=== PATIENT | male | born 1965 | race Caucasian/White ===

== ENCOUNTER 2022-05-02 19:44 | Inpatient (IN) | payer MEDICAID ==
[2022-05-02 20:42] LABS: BASOPHILS % (AUTO) 0.2 %; EOSINOPHILS % (AUTO) 0.3 %; HCT - HEMATOCRIT 39.9 % (42.0-52.0); HGB - HEMOGLOBIN 13.5 g/dL (14.0-18.0); LYMPHOCYTES % (AUTO) 9.1 %; MEAN CORPUSCULAR HEMOGLOBIN 27.4 pg (27.0-31.0); MEAN CORPUSCULAR HGB CONC 33.8 g/dL (32.0-36.0); MEAN CORPUSCULAR VOLUME 80.9 fL (80.0-94.0); MEAN PLATELET VOLUME 10.8 fL (7.4-11.4); MONOCYTES % (AUTO) 4.6 %; NEUTROPHILS % (AUTO) 81.2 %; PLT - PLATELET COUNT 548 10^3/uL (130-450); RED BLOOD COUNT 4.93 10^6/uL (4.70-6.10); WHITE BLOOD COUNT 26.1 x10^3/uL (4.8-10.8)
[2022-05-02 20:47] LABS: INR 1.5 (0.8-1.2); PT - PROTHROMBIN TIME 16.3 secs (9.9-12.6)
[2022-05-02 20:49] LABS: SLIDE REVIEW? Indicated
[2022-05-02 20:50] LABS: ABNORMAL LYMPHS % (MANUAL) 0 %
[2022-05-02 20:54] LABS: PARTIAL THROMBOPLASTIN TIME 23.7 secs (24.9-33.3)
[2022-05-02 20:55] LABS: ALBUMIN 2.4 g/dL (3.2-5.5); ALBUMIN/GLOBULIN RATIO 0.4 (1.0-2.2); BILIRUBIN,TOTAL 3.6 mg/dL (0.2-1.0); CALCIUM 8.1 mg/dL (8.5-10.3); CREATININE 1.5 mg/dL (0.6-1.2); POTASSIUM 4.4 mmol/L (3.5-5.0); TOTAL PROTEIN 8.1 g/dL (6.7-8.2)
[2022-05-02 21:29] LABS: BAND NEUTROPHILS % (MANUAL) 14 %; BASOPHILS # (MANUAL) 0.3 10^3/uL (0-0.1); BASOPHILS % (MANUAL) 1 %; LYMPHOCYTES # (MANUAL) 1.8 10^3/uL (1.5-3.5); LYMPHOCYTES % (MANUAL) 7 %; METAMYELOCYTES % (MANUAL) 2 %; NEUTROPHILS # (MANUAL) 22.2 10^3/uL (1.5-6.6); PROMYELOCYTES % (MANUAL) 1 %
[2022-05-02 21:31] LABS: DIFFERENTIAL COMMENT MANUAL DIFFERENTIAL; PLATELET ESTIMATE, MANUAL INCREASED (>450,000) (NORMAL); PLATELET MORPHOLOGY NORMAL APPEARANCE (NORMAL); RBC MORPHOLOGY (MULTIPLE) 1+ POLYCHROMASIA (NORMAL); WBC MORPHOLOGY (MULTIPLE) 3+ TOXIC GRANULATION (NORMAL)
[2022-05-02] MEDS ORDERED: VANCOMYCIN INJ 2 GM in SODIUM CHLORIDE 0.9% 500 ML IV STA (21:46)
[2022-05-02] MEDS ORDERED: SODIUM CHLORIDE 0.9% 1,000 ML IV STA (21:49)
[2022-05-02] MEDS ORDERED: PIPERACILLIN/TAZOBACTAM 3.375 GM in SODIUM CHLORIDE 0.9% MINIBAG 100 ML IV STA (21:49)
--- NOTE | 2022-05-02 21:50 | ED Physician Documentation ---
History of Present Illness - Stated complaint Stated Complaint: SWOLLEN/ROTTING LEGS - Chief complaint Chief Complaint: Ext Problem - History obtained from History obtained from: Patient, Friend - Additonal information Additional information: Patient is a 57-year-old male with no known medical conditions presenting for evaluation of bilateral lower extremity wounds with maggot infestation. Patient is a poor historian but states that he has had wounds and maggots for quite some time but they have recently become worse. He has not been to any facilities for medical care due to lack of insurance. He is homeless but has lived on [facility] for a long time.Patient denies tobacco use but admits to alcohol and meth use.He denies chest pain, difficulty breathing, coughing, abdominal pain, vomi ting or diarrhea. Review of Systems Constitutional: denies: Fever Nose: denies: Congestion Cardiac: denies: Chest pain / pressure Respiratory: denies: Dyspnea GI: denies: Abdominal Pain, Vomiting, Diarrhea : denies: Dysuria Skin: reports: Rash Musculoskeletal: reports: Extremity pain, Extremity swelling Neurologic: denies: Headache PD PAST MEDICAL HISTORY - Allergies Allergies/Adverse Reactions: Allergies Allergy/AdvReac Type Severity Reaction Status Date / Time No Known Drug Allergies Allergy Verified 05/02/22 19:56 PD ED PE NORMAL - General General: Alert and oriented X 3, Well developed/nourished, Other (Disheveled, unkempt) - HEENT HEENT: Atraumatic, Moist mucous membranes - Neck Neck: Supple, no meningeal sign - Cardiac Cardiac: RRR, No murmur, Strong equal pulses - Respiratory Respiratory: No respiratory distress, Clear bilaterally - Abdomen Abdomen: Normal bowel sounds, Soft, Non tender, Non distended (Protuberant abdomen) - Derm Derm: Other (Sunburn to face and right upper shoulder region, right lower extremity erythema) - Extremities Extremities: Other (Significant edema to bilateral lower extremities with chronic skin changes; Erythema to right, Extensive amount of maggots To right lower extremity some as well to left; Pedal pulses intact) Results - Vitals Vitals: Vital Signs - 24 hr 05/02/22 05/02/22 05/02/22 19:56 19:59 21:57 Temperature 37.3 C 37.3 C Heart Rate 116 H 112 H 111 H Respiratory 16 18 18 Rate Blood Pressure 143/92 H 164/86 H 155/86 H O2 Saturation 98 92 91 L 05/02/22 05/02/22 05/02/22 22:00 22:30 23:00 Temperature Heart Rate 111 H 108 H 105 H Respiratory 18 23 27 H Rate Blood Pressure 164/86 H 137/77 H 153/75 H O2 Saturation 92 93 94 05/02/22 05/03/22 23:30 00:00 Temperature Heart Rate 103 H 103 H Respiratory 25 H 26 H Rate Blood Pressure 131/65 H 107/63 O2 Saturation 91 L 19 L Oxygen O2 Source Room air - Labs Labs: Laboratory Tests 05/02/22 05/02/22 05/02/22 20:32 20:32 20:32 WBC 26.1 H RBC 4.93 Hgb 13.5 L Hct 39.9 L MCV 80.9 MCH 27.4 MCHC 33.8 RDW 15.0 Plt Count 548 H MPV 10.8 Neut # (Auto) Not Reportable Lymph # (Auto) Not Reportable [place] # (Auto) Not Reportable Eos # (Auto) Not Reportable Baso # (Auto) Not Reportable Absolute Nucleated RBC Not Reportable Total Counted 100 Band Neuts % (Manual) 14 H Abnorm Lymph % (Manual) 0 Metamyelocytes % 2 H Promyelocytes % 1 H Nucleated RBC % Not Reportable Neutrophils # (Manual) 22.2 H Lymphocytes # (Manual) 1.8 Monocytes # (Manual) 1.0 Eosinophils # (Manual) 0.0 Basophils # (Manual) 0.3 H Differential Comment MANUAL DIFFERENTIAL Manual Slide Review Indicated WBC Morphology 3+ TOXIC GRANULATION Platelet Estimate INCREASED (>450,000) Platelet Morphology NORMAL APPEARANCE RBC Morph Micro Appear 1+ POLYCHROMASIA PT 16.3 H INR 1.5 H APTT 23.7 L Sodium 128 L Potassium 4.4 Chloride 88 L Carbon Dioxide 21 Anion Gap 19.0 H BUN 49 H Creatinine 1.5 H Estimated GFR (MDRD) 48 L Glucose 157 H Lactic Acid Calcium 8.1 L Total Bilirubin 3.6 H AST 87 H ALT 53 Alkaline Phosphatase 161 H Total Protein 8.1 Albumin 2.4 L Globulin 5.7 H Albumin/Globulin Ratio 0.4 L Lipase 24 Urine Color Urine Clarity Urine pH Ur Specific [place] Urine Protein Urine Glucose (UA) Urine Ketones Urine Occult Blood Urine Nitrite Urine Bilirubin Urine Urobilinogen Ur Leukocyte Esterase Urine RBC Urine WBC Ur Squamous Epith Cells Urine Bacteria Urine Casts Ur Microscopic Review Urine Culture Comments SARS-CoV-2 (PCR) 05/02/22 05/02/22 05/02/22 20:32 21:50 23:51 WBC RBC Hgb Hct MCV MCH MCHC RDW Plt Count MPV Neut # (Auto) Lymph # (Auto) [place] # (Auto) Eos # (Auto) Baso # (Auto) Absolute Nucleated RBC Total Counted Band Neuts % (Manual) Abnorm Lymph % (Manual) Metamyelocytes % Promyelocytes % Nucleated RBC % Neutrophils # (Manual) Lymphocytes # (Manual) Monocytes # (Manual) Eosinophils # (Manual) Basophils # (Manual) Differential Comment Manual Slide Review WBC Morphology Platelet Estimate Platelet Morphology RBC Morph Micro Appear PT INR APTT Sodium Potassium Chloride Carbon Dioxide Anion Gap BUN Creatinine Estimated GFR (MDRD) Glucose Lactic Acid 3.0 H* 2.1 Calcium Total Bilirubin AST ALT Alkaline Phosphatase Total Protein Albumin Globulin Albumin/Globulin Ratio Lipase Urine Color Urine Clarity Urine pH Ur Specific [place] Urine Protein Urine Glucose (UA) Urine Ketones Urine Occult Blood Urine Nitrite Urine Bilirubin Urine Urobilinogen Ur Leukocyte Esterase Urine RBC Urine WBC Ur Squamous Epith Cells Urine Bacteria Urine Casts Ur Microscopic Review Urine Culture Comments SARS-CoV-2 (PCR) NOT DETECTED 05/02/22 23:58 WBC RBC Hgb Hct MCV MCH MCHC RDW Plt Count MPV Neut # (Auto) Lymph # (Auto) [place] # (Auto) Eos # (Auto) Baso # (Auto) Absolute Nucleated RBC Total Counted Band Neuts % (Manual) Abnorm Lymph % (Manual) Metamyelocytes % Promyelocytes % Nucleated RBC % Neutrophils # (Manual) Lymphocytes # (Manual) Monocytes # (Manual) Eosinophils # (Manual) Basophils # (Manual) Differential Comment Manual Slide Review WBC Morphology Platelet Estimate Platelet Morphology RBC Morph Micro Appear PT INR APTT Sodium Potassium Chloride Carbon Dioxide Anion Gap BUN Creatinine Estimated GFR (MDRD) Glucose Lactic Acid Calcium Total Bilirubin AST ALT Alkaline Phosphatase Total Protein Albumin Globulin Albumin/Globulin Ratio Lipase Urine Color DARK YELLOW Urine Clarity SL. CLOUDY Urine pH 5.5 Ur Specific [place] 1.025 Urine Protein 30 H Urine Glucose (UA) NEGATIVE Urine Ketones NEGATIVE Urine Occult Blood TRACE-LYSE Urine Nitrite NEGATIVE Urine Bilirubin MODERATE H Urine Urobilinogen >=8.0 H Ur Leukocyte Esterase NEGATIVE Urine RBC 0-5 Urine WBC 0-3 Ur Squamous Epith Cells RARE Squamous Urine Bacteria Rare Urine Casts 0-2 Hyaline Casts Ur Microscopic Review INDICATED Urine Culture Comments NOT INDICATED SARS-CoV-2 (PCR) PD MEDICAL DECISION MAKING - ED course ED course: 1206 - Dr. To has Evaluated the patient and Agrees to admit to inpatient. Hospitalist will consult surgery in the morning as patient will likely need wound debridement but does not require this emergently tonight. Departure - Departure Disposition: 66 [facility] DC/Xfer Clinical Impression: Cellulitis of right lower extremity, ROBYN (acute kidney injury), Sepsis, Maggot infestation, Hyponatremia Condition: Serious
[2022-05-02] MEDS ORDERED: VANCOMYCIN 1 GM VIAL ONE (22:08)
[2022-05-03 00:08] LABS: LACTIC ACID, VENOUS 2.1 mmol/L (0.5-2.2)
[2022-05-03 00:12] LABS: GLUCOSE, URINE (UA) NEGATIVE (NEGATIVE); KETONES,URINE (UA) NEGATIVE (NEGATIVE); LEUKOCYTE ESTERASE, URINE NEGATIVE (NEGATIVE); NITRITE,URINE NEGATIVE (NEGATIVE); OCCULT BLOOD,URINE TRACE-LYSE (NEGATIVE); PH,URINE 5.5 PH (5.0-7.5); PROTEIN,URINE 30 mg/dL (NEGATIVE); UROBILINOGEN,URINE >=8.0 E.U./dL (NORMAL)
[2022-05-03] MEDS ORDERED: ONDANSETRON 4 MG/2 ML VIAL IVP PRN (00:13)
[2022-05-03] MEDS ORDERED: SODIUM CHLORIDE FLUSH 0.9% 10 ML SYRINGE IVP PRN (00:13)
[2022-05-03 00:17] LABS: BILIRUBIN,URINE MODERATE (NEGATIVE); CLARITY,URINE SL. CLOUDY (CLEAR); ICTOTEST,URINE POSITIVE
[2022-05-03 00:22] LABS: BACTERIA,URINE Rare /HPF (None Seen); CASTS, URINE 0-2 Hyaline Casts /LPF; RBC,URINE 0-5 /HPF (0-5); SQUAMOUS EPITHELIAL CELL,UR RARE Squamous (<= Few); WBC,URINE 0-3 /HPF (0-3)
--- NOTE | 2022-05-03 00:40 | HISTORY & PHYSICAL EXAMINATION ---
Chief Complaint - Chief Complaint Chief Complaint: chronic lower extremity wounds with maggots History of Present Illness - Admitted From Admitted From:: [facility] ED - History Obtained From Records Reviewed: yes History obtained from: ED provider, patient and friend Exam Limitations: poor historian - History of Present Illness HPI Comment/Other: Patient is a 57-year-old obese male who is homeless and very disheveled. He resides on [facility] in [facility]. He was brought in by a friend because he noted that there was an increased amount of maggots coming out of his lower extremity wounds. This is notably on the right lower extremity. The patient has chronic wounds for years. It appears he had maggots in this wounds for a very long time. However lately there seems to be a significantly increa sed amount of maggots. The lower extremity is currently weeping serosanguineous fluid and there is innumerable amount of maggots coming out of the wounds. The leg is significantly edematous and erythematous. There are left lower extremity has chronic venous stasis changes. He has significant facial sunburn and the skin on his forehead is peeling Patient is not a very good historian. He denies any medical problems for which he takes medications. He smokes cigarettes does not consume alcohol and uses methamphetamine. The last time was about 2 weeks ago. In the ED work-up included CBC which showed a white blood cell count of 26.1 with 14 bands. Lactic acid 3.0. Creatinine 1.5. He was presented for admission for further treatment. He denies chest pain, dyspnea, abdominal pain, nausea, vomiting, fever or chills. History - Past Medical History MRSA Hx?: No Other Past Medical History: Patient denies any medical history. He does not take any medications. He has not seen a physician in a long time. - Family & Social History Family History Comment/Other: None germane to his presentation. Social History Notes: The patient is homeless. He lives on [facility]. He reports living on [facility] for the past 20 years. He is family/relatives are in the [facility] area. He reports smoking too much cigarettes. He also uses methamphetamine. Last use was about 2 weeks ago. He denies alcohol use. - POLST Patient has POLST: No POLST Status: Full Code Meds/Allgy - Allergies Allergies/Adverse Reactions: Allergies Allergy/AdvReac Type Severity Reaction Status Date / Time No Known Drug Allergies Allergy Verified 05/02/22 19:56 Review of Systems - Other Findings Other Findings: A 12 point review of system was done and found to be negative except for as mentioned in the HPI. Prior Level of Functionality: He is independent of activities of daily living Exam - Vital Signs Vital Signs: Vital Signs x48h Temp Pulse Resp BP Pulse Ox 05/03/22 00:00 103 H 26 H 107/63 19 L 05/02/22 23:30 103 H 25 H 131/65 H 91 L 05/02/22 23:00 105 H 27 H 153/75 H 94 05/02/22 22:30 108 H 23 137/77 H 93 05/02/22 22:00 111 H 18 164/86 H 92 05/02/22 21:57 111 H 18 155/86 H 91 L 05/02/22 19:59 37.3 C 112 H 18 164/86 H 92 05/02/22 19:56 37.3 C 116 H 16 143/92 H 98 - Physical Exam General Appearance: positive: Alert, Mild distress, Other (Very dishevelled) Eyes Bilateral: positive: PERRL, EOMI ENT: positive: No signs of dehydration Neck: positive: No JVD, Trachea midline Respiratory: positive: Chest non-tender, No respiratory distress, Breath sounds nml. negative: Wheezes, Rales, Rhonchi Cardiovascular: positive: Tachycardia Abdomen: positive: Non-tender, Nml bowel sounds, Other (protuberant abdomen.). negative: Guarding, Rebound Back: negative: Nml inspection Skin: positive: Other (facial sunburn with skin peeling on forehead) Extremities: positive: Other (Extensive chronic right lower extremity wounds with innumerable maggots. Erythema on the right lower extremity. Weeping serosanguinous fluid. Chronic venostasis changes on left leg) Neurologic/Psychiatric: positive: Oriented x3 Sepsis Event Note (H) - Evaluation Current Stage of Sepsis: Sepsis Possible source of Sepsis: positive: Skin/soft tissue - Sepsis Criteria Sepsis Criteria: Recorded Heart Rate greater than 90 bpm, WBC count greater than 10% bands, WBC count greater than 12,000 or less than 4000, Metabolic: lactate > 2 mmol/L Conclusion/Plan - Problem List (1) Sepsis Conclusion/Plan: Secondary to right lower extremity cellulitis. White blood cell count 26.1 with 14% bands. Lactic acid 3.0. Trend lactic acid Chronic right lower extremity wounds with innumerable maggots. Blood cultures drawn. Patient started on IV hydration with normal saline at 125 mL/h. Antibiotics vancomycin and Zosyn initiated. Will consult general surgery Dr. Martinez for debridement (2) Cellulitis of right lower extremity Conclusion/Plan: White blood cell count 26.1 with 14% bands. Lactic acid 3.0. Trend lactic acid Chronic right lower extremity wounds with innumerable maggots. Blood cultures drawn. Patient started on IV hydration with normal saline at 125 mL/h. Antibiotics vancomycin and Zosyn initiated. Will consult general surgery Dr. Martinez for debridement (3) Chronic wound of extremity Conclusion/Plan: White blood cell count 26.1 with 14% bands. Lactic acid 3.0. Trend lactic acid Chronic right lower extremity wounds with innumerable maggots. Blood cultures drawn. Patient started on IV hydration with normal saline at 125 mL/h. Antibiotics vancomycin and Zosyn initiated. Will consult general surgery Dr. Martinez for debridement Patient will need to follow-up with wound care in the outpatient setting. (4) ROBYN (acute kidney injury) Conclusion/Plan: Creatinine 1.5 with estimated GFR of 48. Patient was given a 1 L bolus of normal saline in the emergency room. IV hydration with normal saline at 125 mL/h initiated (5) Methamphetamine abuse Conclusion/Plan: Patient reports methamphetamine use as recently as 2 weeks ago. - Lab Results Fish Bones: 05/02/22 20:32 05/02/22 20:32 Core Measures - Anticipated LOS I expect patient to be DC'd or transferred within 96 hours.: Yes - DVT/VTE - Prophylaxis VTE/DVT Device ordered at admit?: No VTE/DVT Prophylaxis med ordered at admit?: Yes
[2022-05-03] MEDS ORDERED: SODIUM CHLORIDE 0.9% 1,000 ML IV SCH (01:00)
[2022-05-03] MEDS: SODIUM CHLORIDE FLUSH 0.9% 10 ML SYRINGE IVP SCH ×3 (03:09→17:45)
[2022-05-03 03:27] LABS: LACTIC ACID, VENOUS 2.2 mmol/L (0.5-2.2)
[2022-05-03] MEDS: PIPERACILLIN/TAZOBACTAM 3.375 GM in SODIUM CHLORIDE 0.9% MINIBAG 100 ML IV SCH ×3 (03:44→17:41)
[2022-05-03 05:59] LABS: BASOPHILS % (AUTO) 0.1 %; EOSINOPHILS % (AUTO) 0.3 %; HCT - HEMATOCRIT 35.4 % (42.0-52.0); LYMPHOCYTES % (AUTO) 10.1 %; MEAN CORPUSCULAR HEMOGLOBIN 27.3 pg (27.0-31.0); MEAN CORPUSCULAR HGB CONC 33.9 g/dL (32.0-36.0); MEAN CORPUSCULAR VOLUME 80.6 fL (80.0-94.0); MEAN PLATELET VOLUME 10.4 fL (7.4-11.4); MONOCYTES % (AUTO) 3.7 %; PLT - PLATELET COUNT 493 10^3/uL (130-450); RED BLOOD COUNT 4.39 10^6/uL (4.70-6.10); RED CELL DISTRIBUTION WIDTH 15.1 % (12.0-15.0); WHITE BLOOD COUNT 24.7 x10^3/uL (4.8-10.8)
[2022-05-03 06:06] LABS: CALCIUM 7.6 mg/dL (8.5-10.3); CREATININE 1.3 mg/dL (0.6-1.2)
[2022-05-03 06:16] LABS: ABNORMAL LYMPHS % (MANUAL) 1 %; BAND NEUTROPHILS % (MANUAL) 2 %; DIFFERENTIAL COMMENT MANUAL DIFFERENTIAL; EOSINOPHILS # (MANUAL) 0.5 10^3/uL (0-0.7); LYMPHOCYTES # (MANUAL) 2.5 10^3/uL (1.5-3.5); LYMPHOCYTES % (MANUAL) 9 %; MONOCYTES # (MANUAL) 1.2 10^3/uL (0.0-1.0); NEUTROPHILS # (MANUAL) 20.5 10^3/uL (1.5-6.6); PLATELET ESTIMATE, MANUAL INCREASED (>450,000) (NORMAL); PLATELET MORPHOLOGY NORMAL APPEARANCE (NORMAL); RBC MORPHOLOGY (MULTIPLE) NORMAL APPEARANCE (NORMAL); WBC MORPHOLOGY (MULTIPLE) NORMAL APPEARANCE (NORMAL)
--- NOTE | 2022-05-03 08:44 | XRAY Report ---
PROCEDURE: Chest 1 View X-Ray INDICATIONS: New onset dyspnea TECHNIQUE: One view of the chest was acquired. COMPARISON: None. FINDINGS: Surgical changes and devices: None. Lungs and pleura: No pleural effusion or pneumothorax. Small opacity in the medial right lung base is likely atelectasis or infiltrate. Lungs otherwise clear. Mediastinum: Mediastinal contours appear normal. Heart size is normal. Bones and chest wall: No suspicious bony lesions. Overlying soft tissues appear unremarkable. IMPRESSION: Small opacity in the medial right lung base representing either infiltrate or atelectasis. No signifi cant change from preliminary report. Reviewed by: Jensen Be MD on 05/03/2022 8:43 AM PDT Approved by: Jensen Be MD on 05/03/2022 8:43 AM PDT Station ID: [id number]
[2022-05-03] MEDS: ENOXAPARIN 40 MG/0.4 ML SYRINGE SUBQ SCH (09:14)
[2022-05-03] MEDS ORDERED: VANCOMYCIN INJ 1.5 GM in SODIUM CHLORIDE 0.9% 250 ML IV SCH (11:00)
[2022-05-03] MEDS ORDERED: VANCOMYCIN INJ 1.5 GM in SODIUM CHLORIDE 0.9% 500 ML IV SCH (11:52)
[2022-05-03] MEDS: VANCOMYCIN INJ 1.5 GM in SODIUM CHLORIDE 0.9% 500 ML IV SCH (14:48)
--- NOTE | 2022-05-03 14:59 | CONSULTATION NOTE ---
Referring Provider Name of Referring Provider:: Dr. Sonia Monaco Consult Date: 05/03/22 Chief Complaint - Chief Complaint Chief Complaint: Cellulitis History of Present Illness - Admitted From Admitted From:: ED - History Obtained From Records Reviewed: Other provider's notes History obtained from: Providers, nurse Exam Limitations: Patient very sleepy, not feeling well - History of Present Illness HPI Comment/Other: Mr. Turcios is a very unfortunate 57-year-old gentleman who was brought in by friend last evening after he became sicker than normal. He has a history of chronic lower extremity wounds and has had maggots in these wounds for many years. He is homeless and has difficulty taking good care of himself. In the emergency room he was found to be essentially septic from wound infection. He was admitted to the hospitalist service where he is receiving IV antibiotic therapy. I have been consulted regarding these chronic wounds.At the time of my examination, Mr. Turcios is very sleepy. I can arouse him and get him to turn over but then he falls back asleep immediately when we start to talk.He is already received an extensive Hibiclens shower and scrubbing by his nurse and more maggots continue to emerge from the wounds on his legs even though it was cleaned initially and for a period of time. History - Past Medical History MRSA Hx?: No Other Past Medical History: Patient denies any medical history. He does not take any medications. He has not seen a physician in a long time. - Family & Social History Family History Comment/Other: None germane to his presentation. Social History Notes: The patient is homeless. He lives on [facility]. He reports living on [facility] for the past 20 years. He is family/relatives are in the [facility] area. He reports smoking too much cigarettes. He also uses methamphetamine. Last use was about 2 weeks ago. He denies alcohol use. - POLST Patient has POLST: No POLST Status: Full Code Meds/Allgy - Allergies Allergies/Adverse Reactions: Allergies Allergy/AdvReac Type Severity Reaction Status Date / Time No Known Drug Allergies Allergy Verified 05/02/22 19:56 Review of Systems - All Other Systems All Other Systems: reports: Other (Unable to obtain) Exam - Vital Signs Reviewed Vital Signs: Yes Vital Signs: Vital Signs x48h Temp Pulse Resp BP Pulse Ox 05/03/22 11:51 36.5 C 96 20 142/90 H 94 05/03/22 08:25 93 05/03/22 08:17 36.8 C 96 22 136/82 H 95 - Physical Exam General Appearance: positive: Lethargic Comments/Other: Severe edema with chronic wounds of bilateral lower extremities. There is erythema of the right leg extending from the mid thigh to the toes. Open wounds extending from mid calf to the ankle. Evidence of dark and infected tissue without emy necrosis. On the left leg, there is chronic thickened coarse tissue posteriorly. Erythema of the left leg from the calf to the foot. Open wounds but less swelling and foul odor than on the right.Nonpalpable pulses.Chronic draining serous fluid. Multiple maggots are seen emerging from the thickened tissue in the mid calf and anterior leg region. Conclusion and Plan - Lab Results Microbiology Results 05/02/22 20:32 Blood Blood Culture (PCR) - Final Laboratory Results 05/03/22 09:04: Lactic Acid 1.9 05/03/22 05:50: B-Natriuretic Peptide 55 05/03/22 05:50: Lactic Acid 1.9 05/03/22 05:50: Sodium 129 L, Potassium 4.0, Chloride 93 L, Carbon Dioxide 23, Anion Gap 13.0, BUN 48 H, Creatinine 1.3 H, Estimated GFR (MDRD) 57 L, Glucose 164 H, Calcium 7.6 L 05/03/22 05:50: WBC 24.7 H, RBC 4.39 L, Hgb 12.0 L, Hct 35.4 L, MCV 80.6, MCH 27.3, MCHC 33.9, RDW 15.1 H, Plt Count 493 H, MPV 10.4, Neut # (Auto) Not Repo rtable, Lymph # (Auto) Not Reportable, [place] # (Auto) Not Reportable, Eos # (Auto) Not Reportable, Baso # (Auto) Not Reportable, Absolute Nucleated RBC Not Reportable, Total Counted 100, Band Neuts % (Manual) 2, Abnorm Lymph % (Manual) 1, Nucleated RBC % Not Reportable, Neutrophils # (Manual) 20.5 H, Lymphocytes # (Manual) 2.5, Monocytes # (Manual) 1.2 H, Eosinophils # (Manual) 0.5, Basophils # (Manual) 0.0, Differential Comment MANUAL DIFFERENTIAL, WBC Morphology NORMAL APPEARANCE, Platelet Estimate INCREASED (>450,000), Platelet Morphology NORMAL APPEARANCE, RBC Morph Micro Appear NORMAL APPEARANCE 05/03/22 03:11: Lactic Acid 2.2 05/02/22 23:58: Urine Color DARK YELLOW, Urine Clarity SL. CLOUDY, Urine pH 5.5, Ur Specific [place] 1.025, Urine Protein 30 H, Urine Glucose (UA) NEGATIVE, Urine Ketones NEGATIVE, Urine Occult Blood TRACE-LYSE, Urine Nitrite NEGATIVE, Urine Bilirubin MODERATE H, Urine Urobilinogen >=8.0 H, Ur Leukocyte Esterase NEGATIVE, Urine RBC 0-5, Urine WBC 0-3, Ur Squamous Epith Cells RARE Squamous, Urine Bacteria Rare, Urine Casts 0-2 Hyaline Casts, Ur Microscopic Review INDICATED, Urine Culture Comments NOT INDICATED 05/02/22 23:51: Lactic Acid 2.1 05/02/22 21:50: SARS-CoV-2 (PCR) NOT DETECTED 05/02/22 20:32: Lactic Acid 3.0 H* 05/02/22 20:32: Sodium 128 L, Potassium 4.4, Chloride 88 L, Carbon Dioxide 21, Anion Gap 19.0 H, BUN 49 H, Creatinine 1.5 H, Estimated GFR (MDRD) 48 L, Glucose 157 H, Calcium 8.1 L, Total Bilirubin 3.6 H, AST 87 H, ALT 53, Alkaline Phosphatase 161 H, Total Protein 8.1, Albumin 2.4 L, Globulin 5.7 H, Albumin/Globulin Ratio 0.4 L, Lipase 24 05/02/22 20:32: PT 16.3 H, INR 1.5 H, APTT 23.7 L 05/02/22 20:32: WBC 26.1 H, RBC 4.93, Hgb 13.5 L, Hct 39.9 L, MCV 80.9, MCH 27.4, MCHC 33.8, RDW 15.0, Plt Count 548 H, MPV 10.8, Neut # (Auto) Not Reportable, Lymph # (Auto) Not Reportable, [place] # (Auto) Not Reportable, Eos # (Auto) Not Reportable, Baso # (Auto) Not Reportable, Absolute Nucleated RBC Not Reportable, Total Counted 100, Band Neuts % (Manual) 14 H, Abnorm Lymph % (Manual) 0, Metamyelocytes % 2 H, Promyelocytes % 1 H, Nucleated RBC % Not Reportable, Neutrophils # (Manual) 22.2 H, Lymphocytes # (Manual) 1.8, Monocytes # (Manual) 1.0, Eosinophils # (Manual) 0.0, Basophils # (Manual) 0.3 H, Differential Comment MANUAL DIFFERENTIAL, Manual Slide Review Indicated, WBC Morphology 3+ TOXIC GRANULATION, Platelet Estimate INCREASED (>450,000), Platelet Morphology NORMAL APPEARANCE, RBC Morph Micro Appear 1+ POLYCHROMASIA - Diagnosis Diagnosis: Severe chronic venous stasis ulcers involving both lower extremities with acute infection and cellulitis leading to sepsis. - Plan Plan: Unfortunately, this is not going to be an easy problem to treat. It is made more complex by the patient's living situation. 1.Agree with antibiotic therapy including Zosyn and vancomycin.Would hold off on any topical therapy for the present. When the drainage begins to improve, we can add a topical agent. 2. Elevation is paramount in treating the results of this illness. This will be difficult secondary to patient cooperation and comfort. To the degree possible, the leg should be elevated above the level of the heart at all times.Recommend only dry dressings with chux or towels posterior to the legs. Open to air is much as possible. 3. Daily wash with Hibiclens and water and pat dry. 4. We will follow with you and hope to make useful suggestions along the way.Nothing to debride surgically at this time. 5. Duplex may be useful to rule out DVT. Probably of no use below the knee on either side.
--- NOTE | 2022-05-04 01:16 | Ultrasound Report ---
PROCEDURE: Duplex Ext Veins Bilateral INDICATIONS: Venous stasis ulceration TECHNIQUE: Real-time imaging, as well as color and pulse Doppler interrogation, were performed of the deep veins of both legs from the inguinal ligament to the popliteal fossa. COMPARISON: None. FINDINGS: The deep veins to the popliteal veins are normally compressible, and free of intraluminal thrombus. The calf veins were unable to be evaluated due to overlying bandages. Color and pulse Doppl er demonstrate normal phasic intravascular flow. There is normal augmentation response to distal com pression maneuver. IMPRESSION: 1. No definite evidence of deep venous thrombosis in the right or left lower extremity, with the calf veins unable to be assessed. Reviewed by: Sunny Grewal MD on 05/04/2022 1:15 AM PDT Approved by: Sunny Grewal MD on 05/04/2022 1:15 AM PDT Station ID: [id number]
[2022-05-04] MEDS: SODIUM CHLORIDE FLUSH 0.9% 10 ML SYRINGE IVP SCH ×3 (01:18→16:07)
[2022-05-04] MEDS: ACETAMINOPHEN 325 MG TABLET PO PRN ×2 (01:19→22:22)
[2022-05-04] MEDS: VANCOMYCIN INJ 1.5 GM in SODIUM CHLORIDE 0.9% 500 ML IV SCH (02:25)
[2022-05-04] MEDS: PIPERACILLIN/TAZOBACTAM 3.375 GM in SODIUM CHLORIDE 0.9% MINIBAG 100 ML IV SCH (02:25)
[2022-05-04 05:45] LABS: BASOPHILS % (AUTO) 0.1 %; HCT - HEMATOCRIT 34.5 % (42.0-52.0); HGB - HEMOGLOBIN 11.6 g/dL (14.0-18.0); LYMPHOCYTES % (AUTO) 10.9 %; MEAN CORPUSCULAR HEMOGLOBIN 27.6 pg (27.0-31.0); MEAN CORPUSCULAR HGB CONC 33.6 g/dL (32.0-36.0); MEAN CORPUSCULAR VOLUME 81.9 fL (80.0-94.0); MEAN PLATELET VOLUME 10.3 fL (7.4-11.4); MONOCYTES % (AUTO) 5.9 %; NEUTROPHILS % (AUTO) 74.9 %; PLT - PLATELET COUNT 492 10^3/uL (130-450); RED BLOOD COUNT 4.21 10^6/uL (4.70-6.10); RED CELL DISTRIBUTION WIDTH 15.4 % (12.0-15.0); WHITE BLOOD COUNT 22.9 x10^3/uL (4.8-10.8)
[2022-05-04 05:53] LABS: CALCIUM 7.8 mg/dL (8.5-10.3); CREATININE 0.9 mg/dL (0.6-1.2); POTASSIUM 3.8 mmol/L (3.5-5.0)
[2022-05-04 06:04] LABS: ABNORMAL LYMPHS % (MANUAL) 2 %; BAND NEUTROPHILS % (MANUAL) 3 %; DIFFERENTIAL COMMENT MANUAL DIFFERENTIAL; LYMPHOCYTES # (MANUAL) 4.8 10^3/uL (1.5-3.5); LYMPHOCYTES % (MANUAL) 19 %; MONOCYTES # (MANUAL) 2.1 10^3/uL (0.0-1.0); PLATELET ESTIMATE, MANUAL INCREASED (>450,000) (NORMAL); PLATELET MORPHOLOGY NORMAL APPEARANCE (NORMAL); RBC MORPHOLOGY (MULTIPLE) NORMAL APPEARANCE (NORMAL); WBC MORPHOLOGY (MULTIPLE) NORMAL APPEARANCE (NORMAL)
[2022-05-04] MEDS ORDERED: PIPERACILLIN/TAZOBACTAM 3.375 GM in SODIUM CHLORIDE 0.9% MINIBAG 100 ML IV SCH (10:00)
[2022-05-04] MEDS ORDERED: [UNRECOGNIZED DRUG - REMARK] MC ONE (10:00)
[2022-05-04 10:19] LABS: VANCOMYCIN,TROUGH 16.3 ug/mL (10.0-20.0)
[2022-05-04] MEDS: ENOXAPARIN 40 MG/0.4 ML SYRINGE SUBQ SCH (10:30)
[2022-05-04] MEDS: oxyCODONE 5 MG TABLET PO PRN ×2 (10:31→22:22)
--- NOTE | 2022-05-04 13:20 | Ultrasound Report ---
PROCEDURE: Abdomen Complete INDICATIONS: ascites TECHNIQUE: Real-time scanning was performed of the abdominal and retroperitoneal organs, with image documentatio n. COMPARISON: None. FINDINGS: Limited exam due to marked bowel gas, body habitus, and positioning limitations. Liver: Hepatomegaly at 15.7 cm. Increased echogenicity. Hepatopedal main portal venous flow, but with elevated velocity up to 66 cm/s Gallbladder: Unremarkable. Difficult to evaluate due to positioning. Biliary ducts: CBD measures 4 mm. CHD measures 2.8 mm. Pancreas: Not well-seen Spleen: Spleen is normal in size and homogeneous in echotexture. Kidneys: Right kidney measures 12.1 cm. Left kidney measures 1 cm. Right renal cortex measures 1.1 cm . Left kidney cortex measures 1.4 cm. Aorta: The aorta measures up to 3 cm of the proximal aspect. Iliacs: Not well seen IVC: Intrahepatic inferior vena cava is patent. Miscellaneous: Trace fluid around the liver. IMPRESSION: Trace perihepatic fluid. Hepatomegaly and suspected steatosis. Main portal venous flow is hepatopedal with elevated velocity, nonspecific. Correlate clinically for chronic liver disease. Reviewed by: Shukri Kinsey MD on 05/04/2022 1:19 PM PDT Approved by: Shukri Kinsey MD on 05/04/2022 1:19 PM PDT Station ID: [id number]
[2022-05-04] MEDS ORDERED: VANCOMYCIN INJ 1 GM, VANCOMYCIN INJ 500 MG in SODIUM CHLORIDE 0.9% 500 ML IV SCH (15:30)
--- NOTE | 2022-05-04 16:36 | PROVIDER PROGRESS NOTE ---
Subjective - Prog Note Date Prog Note Date: 05/04/22 Prog Note Time: 16:46 - Subjective Pt reports feeling: Improved Subjective: He is starting to wake up more. Starting to remember more things. Cannot really remember how he got here. Gives me a vague history of being employed, using methamphetamines. Then COVID hit and he was no longer able to work. He is self-employed. Has been living in his friend's garage. Vague about why he cannot take a shower or clean himself. 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 Then all of a sudden he feels like the right leg got involved a few weeks ago. And after that he just does not remember very much. Does not remember sitting in a chair in the sun next to the garage and being out there for a day or 2 until someone called EMS to bring him in. His current complaint right now is that of significant leg pain. The legs are very tender to touch. It hurts to even just bring his legs down for dependency and they start to throb. Much less stand. Current Medications - Current Medications Current Medications: Active Medications Acetaminophen (Acetaminophen 325 Mg Tablet) 650 mg PO Q4HR PRN PRN Reason: Pain 1 to 4, or Fever Last Admin: 05/04/22 01:19 Dose: 650 mg Enoxaparin Sodium (Enoxaparin 40 Mg/0.4 Ml Syringe) 40 mg SUBQ DAILY SANDRA Last Admin: 05/04/22 10:30 Dose: 40 mg Penicillin G Potassium 5,000, (000 unit/ Sodium Chloride) 100 mls @ 100 mls/hr IV Q4HR SANDRA Ondansetron HCl (Ondansetron 4 Mg/2 Ml Vial) 4 mg IVP Q6HR PRN PRN Reason: Nausea / Vomiting Last Admin: 05/04/22 01:19 Dose: 4 mg Oxycodone HCl (Oxycodone 5 Mg Tablet) 5 mg PO Q4HR PRN PRN Reason: PAIN Last Admin: 05/04/22 10:31 Dose: 5 mg Saccharomyces Boulardii (Saccharomyces Boulardii 250 Mg Capsule) 250 mg PO BIDWM SANDRA Sodium Chloride (Sodium Chloride Flush 0.9% 10 Ml Syringe) 10 ml IVP PRN PRN PRN Reason: NEEDED PER PROVIDER ORDERS Sodium Chloride (Sodium Chloride Flush 0.9% 10 Ml Syringe) 10 ml IVP 0100,0900,1700 SANDRA Last Admin: 05/04/22 16:07 Dose: 10 ml Objective - Vital Signs/Intake & Output Reviewed Vital Signs: Yes Vital Signs: Vital Signs x48h Temp Pulse Resp BP Pulse Ox 05/04/22 11:28 36.7 C 87 16 139/77 H 97 05/04/22 09:00 36.5 C 83 16 145/66 H 92 Intake & Output: Intake & Output 05/01/22 05/02/22 05/03/22 05/04/22 23:59 23:59 23:59 23:59 Intake Total 1100 3525 1590 Output Total 1940 1000 Balance 1100 1585 590 - Objective General Appearance: positive: Alert, Moderate distress (from leg pain), Other (sunburn face, sunburn strip of lower abd skin. starting to peel) Eyes Bilateral: positive: PERRL ENT: positive: No signs of dehydration Neck: positive: No JVD Respiratory: positive: No respiratory distress. negative: Wheezes, Rales, Rhonchi Cardiovascular: positive: Regular rate & rhythm. negative: Gallop/S4, Friction rub Abdomen: positive: Non-tender, No organomegaly, Nml bowel sounds, No distention Skin: positive: Warm, Dry, Other (sunburn) Extremities: positive: Full ROM, Pedal edema (legs below the knee, red skin around the macerated, oozing shins . Odor has improved after bath 05/03 but still there.) Neurologic/Psychiatric: positive: Oriented x3, CN's nml (2-12), Motor nml, Weakness (generalized) - Lab Results Fish Bones: 05/04/22 05:29 05/04/22 05:29 Other Labs: Lab Results x24hrs 05/04/22 05/04/22 05/04/22 Range/Units 10:03 05:29 05:29 WBC 22.9 H (4.8-10.8) x10^3/uL RBC 4.21 L (4.70-6.10) 10^6/uL Hgb 11.6 L (14.0-18.0) g/dL Hct 34.5 L (42.0-52.0) % MCV 81.9 (80.0-94.0) fL MCH 27.6 (27.0-31.0) pg MCHC 33.6 (32.0-36.0) g/dL RDW 15.4 H (12.0-15.0) % Plt Count 492 H (130-450) 10^3/uL MPV 10.3 (7.4-11.4) fL Neut # (Auto) Not Reportable Lymph # (Auto) Not Reportable [place] # (Auto) Not Reportable Eos # (Auto) Not Reportable Baso # (Auto) Not Reportable Absolute Nucleated RBC Not Reportable Total Counted 100 Band Neuts % (Manual) 3 (0 - 10) % Abnorm Lymph % (Manual) 2 % Nucleated RBC % Not Reportable Neutrophils # (Manual) 16.0 H (1.5-6.6) 10^3/uL Lymphocytes # (Manual) 4.8 H (1.5-3.5) 10^3/uL Monocytes # (Manual) 2.1 H (0.0-1.0) 10^3/uL Eosinophils # (Manual) 0.0 (0-0.7) 10^3/uL Basophils # (Manual) 0.0 (0-0.1) 10^3/uL Differential Comment MANUAL DIFFERENTIAL WBC Morphology NORMAL APPEARANCE (NORMAL) Platelet Estimate INCREASED (>450,000) (NORMAL) Platelet Morphology NORMAL APPEARANCE (NORMAL) RBC Morph Micro Appear NORMAL APPEARANCE (NORMAL) Sodium 132 L (135-145) mmol/L Potassium 3.8 (3.5-5.0) mmol/L Chloride 96 L (101-111) mmol/L Carbon Dioxide 24 (21-32) mmol/L Anion Gap 12.0 (6-13) BUN 32 H (6-20) mg/dL Creatinine 0.9 (0.6-1.2) mg/dL Estimated GFR (MDRD) 87 L (>89) Glucose 132 H (70-100) mg/dL Calcium 7.8 L (8.5-10.3) mg/dL Last Dose Date 05-04-22 Last Dose Time 04:25 Vancomycin Trough 16.3 (10.0-20.0) ug/mL ABX Reporting Has patient been on IV antibiotics over the past 48 hours?: Yes Sepsis Event Note (H) - Evaluation Current Stage of Sepsis: Resolved Possible source of Sepsis: positive: Skin/soft tissue - Sepsis Criteria Sepsis Criteria: Recorded Heart Rate greater than 90 bpm, WBC count greater than 10% bands, WBC count greater than 12,000 or less than 4000, Metabolic: lactate > 2 mmol/L Assessment/Plan - Problem List (1) Sepsis due to Streptococcus pyogenes Impression: He presented as a disheveled gentleman who lives in a garage provided by his friend. Has probably not showered in months. Cannot really say why. Has had a chronic leg wound on the left for 8 years but recently developed leg wounds on the right lower extremity. He has had maggots in his left leg for a very long time and those have increased in severity. Then started having maggots in the right leg in the last few weeks. He seems to have been developed subsequent cellulitis. On admit White blood cell count 26.1 with 14% bands. Lactic acid 3.0. Lactic acid is come down to 1.9. White cell count is still elevated at 22.9 but lower. His sepsis has resolved and he has been identified as having strep pyogenes bacteremia. He was started on vancomycin and Zosyn. With today's culture identifying him as strep pyogenes in the blood he is transition to penicillin. I spoke to infectious disease consulting engineer at that feels that single agent penicillin every 6 hours will be enough. She states that we should aim for about 14 days. Recheck blood cultures to make sure he is clearing. Check echocardiogram for endocarditis changes. (2) Cellulitis of right lower extremity Conclusion/Plan: General surgery has been consulted. They have seen the patient but feel that at this time it boils down to daily baths and the maggots will slowly pop up through the wounds and . She does not feel debridement is necessary. She would recommend that he be seen by wound clinic if possible. (3) Chronic wound of extremity Conclusion/Plan: As above. We will check arterial Dopplers for peripheral vascular disease assessment (4) ROBYN (acute kidney injury) resolved Conclusion/Plan: Creatinine 1.5 with estimated GFR of 48. Now 0.9 and 38 respectively. Patient was given a 1 L bolus of normal saline in the emergency room and was on IV hydration with normal saline at 125 mL/h . Now that he is eating and drinking, maintenance IVF stopped. (5) Methamphetamine abuse Conclusion/Plan: Patient reports methamphetamine use as recently as 2 weeks ago. He states that he does not think he is ever gone to do it again. He is tired of living the life he has been living. His mother and his brothers have been in contact. They live in [place]. He states that once he is over this acute care episode they would like to pick him up and take him down to [place] to finish his medical care and wound care down there. I will get the phone numbers for her and his brothers to update them and to verify the discharge disposition
[2022-05-04] MEDS: SACCHAROMYCES BOULARDII 250 MG CAPSULE PO SCH (18:16)
[2022-05-04] MEDS: PENICILLIN G POTASSIUM 5,000,000 UNIT in SODIUM CHLORIDE 0.9% MINIBAG 100 ML IV SCH ×2 (18:17→22:03)
[2022-05-05] MEDS: SODIUM CHLORIDE FLUSH 0.9% 10 ML SYRINGE IVP SCH ×3 (00:38→16:37)
[2022-05-05] MEDS: PENICILLIN G POTASSIUM 5,000,000 UNIT in SODIUM CHLORIDE 0.9% MINIBAG 100 ML IV SCH ×6 (00:38→20:30)
[2022-05-05] MEDS: oxyCODONE 5 MG TABLET PO PRN ×3 (04:34→13:28)
[2022-05-05] MEDS: ACETAMINOPHEN 325 MG TABLET PO PRN (04:34)
[2022-05-05 06:04] LABS: BASOPHILS % (AUTO) 0.9 %; EOSINOPHILS % (AUTO) 1.5 %; HCT - HEMATOCRIT 34.3 % (42.0-52.0); HGB - HEMOGLOBIN 11.1 g/dL (14.0-18.0); LYMPHOCYTES % (AUTO) 13.4 %; MEAN CORPUSCULAR HEMOGLOBIN 27.3 pg (27.0-31.0); MEAN CORPUSCULAR HGB CONC 32.4 g/dL (32.0-36.0); MEAN CORPUSCULAR VOLUME 84.3 fL (80.0-94.0); MEAN PLATELET VOLUME 10.2 fL (7.4-11.4); MONOCYTES % (AUTO) 7.4 %; NEUTROPHILS % (AUTO) 66.7 %; PLT - PLATELET COUNT 504 10^3/uL (130-450); RED BLOOD COUNT 4.07 10^6/uL (4.70-6.10); RED CELL DISTRIBUTION WIDTH 15.8 % (12.0-15.0); WHITE BLOOD COUNT 18.7 x10^3/uL (4.8-10.8)
[2022-05-05 06:11] LABS: CALCIUM 7.9 mg/dL (8.5-10.3); CREATININE 0.8 mg/dL (0.6-1.2); POTASSIUM 4.2 mmol/L (3.5-5.0)
[2022-05-05 06:34] LABS: ABNORMAL LYMPHS % (MANUAL) 1 %; BAND NEUTROPHILS % (MANUAL) 4 %; EOSINOPHILS # (MANUAL) 0.9 10^3/uL (0-0.7); LYMPHOCYTES # (MANUAL) 0.9 10^3/uL (1.5-3.5); LYMPHOCYTES % (MANUAL) 4 %; METAMYELOCYTES % (MANUAL) 2 %; MONOCYTES # (MANUAL) 1.1 10^3/uL (0.0-1.0); MYELOCYTES % (MANUAL) 3 %; NEUTROPHILS # (MANUAL) 14.8 10^3/uL (1.5-6.6); NUCLEATED RBC (MANUAL) 1 %; PLATELET MORPHOLOGY NORMAL APPEARANCE (NORMAL); RBC MORPHOLOGY (MULTIPLE) NORMAL APPEARANCE (NORMAL)
[2022-05-05 06:35] LABS: DIFFERENTIAL COMMENT MANUAL DIFFERENTIAL; PLATELET ESTIMATE, MANUAL INCREASED (>450,000) (NORMAL); WBC MORPHOLOGY (MULTIPLE) NORMAL APPEARANCE (NORMAL)
[2022-05-05] MEDS: SACCHAROMYCES BOULARDII 250 MG CAPSULE PO SCH ×2 (09:26→16:37)
[2022-05-05] MEDS: ENOXAPARIN 40 MG/0.4 ML SYRINGE SUBQ SCH (09:26)
--- NOTE | 2022-05-05 12:50 | PROVIDER PROGRESS NOTE ---
Objective - Vital Signs/Intake & Output Vital Signs: Vital Signs x48h Temp Pulse Resp BP Pulse Ox 05/05/22 09:30 147/76 H 05/05/22 08:44 36.2 C L 80 20 163/83 H 95 05/05/22 04:31 36.9 C 94 95 H 129/66 3 L Intake & Output: Intake & Output 05/02/22 05/03/22 05/04/22 05/05/22 23:59 23:59 23:59 23:59 Intake Total 1100 3525 2826 965 Output Total 1940 1850 425 Balance 1100 1585 976 540 - Lab Results Fish Bones: 05/05/22 05:01 05/05/22 05:01 Other Labs: Lab Results x24hrs 05/05/22 05/05/22 Range/Units 05:01 05:01 WBC 18.7 H (4.8-10.8) x10^3/uL RBC 4.07 L (4.70-6.10) 10^6/uL Hgb 11.1 L (14.0-18.0) g/dL Hct 34.3 L (42.0-52.0) % MCV 84.3 (80.0-94.0) fL MCH 27.3 (27.0-31.0) pg MCHC 32.4 (32.0-36.0) g/dL RDW 15.8 H (12.0-15.0) % Plt Count 504 H (130-450) 10^3/uL MPV 10.2 (7.4-11.4) fL Neut # (Auto) Not Reportable Lymph # (Auto) Not Reportable [place] # (Auto) Not Reportable Eos # (Auto) Not Reportable Baso # (Auto) Not Reportable Absolute Nucleated RBC Not Reportable Total Counted 100 Band Neuts % (Manual) 4 (0 - 10) % Abnorm Lymph % (Manual) 1 % Metamyelocytes % 2 H ( - 0) % Myelocytes % 3 H ( - 0) % Nucleated RBC % Not Reportable Neutrophils # (Manual) 14.8 H (1.5-6.6) 10^3/uL Lymphocytes # (Manual) 0.9 L (1.5-3.5) 10^3/uL Monocytes # (Manual) 1.1 H (0.0-1.0) 10^3/uL Eosinophils # (Manual) 0.9 H (0-0.7) 10^3/uL Basophils # (Manual) 0.0 (0-0.1) 10^3/uL Nucleated RBCs 1 % Differential Comment MANUAL DIFFERENTIAL WBC Morphology NORMAL APPEARANCE (NORMAL) Platelet Estimate INCREASED (>450,000) (NORMAL) Platelet Morphology NORMAL APPEARANCE (NORMAL) RBC Morph Micro Appear NORMAL APPEARANCE (NORMAL) Sodium 134 L (135-145) mmol/L Potassium 4.2 (3.5-5.0) mmol/L Chloride 97 L (101-111) mmol/L Carbon Dioxide 27 (21-32) mmol/L Anion Gap 10.0 (6-13) BUN 27 H (6-20) mg/dL Creatinine 0.8 (0.6-1.2) mg/dL Estimated GFR (MDRD) 100 (>89) Glucose 125 H (70-100) mg/dL Calcium 7.9 L (8.5-10.3) mg/dL Sepsis Event Note (H) - Evaluation Current Stage of Sepsis: Resolved Possible source of Sepsis: positive: Skin/soft tissue - Sepsis Criteria Sepsis Criteria: Recorded Heart Rate greater than 90 bpm, WBC count greater than 10% bands, WBC count greater than 12,000 or less than 4000, Metabolic: lactate > 2 mmol/L Assessment/Plan - Problem List (1) Bacteremia due to Streptococcus Impression: He presented as a disheveled gentleman who lives in a garage provided by his friend. Has probably not showered in months. Cannot really say why. Has had a chronic leg wound on the left for 8 years but recently developed leg wounds on the right lower extremity. He has had maggots in his left leg for a very long time and those have increased in severity. Then started having maggots in the right leg in the last few weeks. He seems to have been developed subsequent cellulitis. On admit He had met criteria for sepsis. Sepsis criteria have now resolved since 05/04. White blood cell count was 26.1 with 14% bands. Lactic acid 3.0. Lactic acid has come down to 1.9. White cell count is still elevated at 22.9>>18.7 and continues to drop slowly. Blood cultures are positive and have been identified as having strep pyogenes bacteremia. He was started on vancomycin and Zosyn. With 05/04 culture identifying him as strep pyogenes in the blood he was transitioned to penicillin. I spoke to infectious disease electronic scale tester at 05/04 that feels that single agent penicillin every 4 hours will be enough. She states that we should aim for about 14 days. Echocardiogram has overall left ventricular systolic function normal at 60 to 65%. Technically difficult study due to because of his limited access due to body habitus. He has impaired relaxation consistent with grade 1 diastolic dys function. The valves were visualized. No vegetations. But several lesions could not be excluded. Blood cultures have been repeated and results are pending from May 04. Plan: Penicillin for total of 14 days. Today is completing the first 24 hours/14. To complete a full 14 days will be completing antibiotics on May 18. I have called Anesthesia [facility] for PICC line placement. Start planning for discharge disposition. (2) Cellulitis of right lower extremity Conclusion/Plan: General surgery has been consulted. They have seen the patient but feel that at this time it boils down to daily baths and the maggots will slowly pop up through the wounds and . She does not feel debridement is necessary. She would recommend that he be seen by wound clinic if possible. Wound clinic states they do not come to do consult on [facility] anymore. We are going to try and get him an appointment in the wound clinic and wean him off the hallway. (3) Chronic wound of extremity Conclusion/Plan: As above. We will check arterial Dopplers for peripheral vascular disease assessment. Those have been ordered. (4) ROBYN (acute kidney injury) resolved Conclusion/Plan: Creatinine 1.5 with estimated GFR of 48. Now 0.8 and 27 respectively. Patient was given a 1 L bolus of normal saline in the emergency room and was on IV hydration with normal saline at 125 mL/h . Now that he is eating and drinking, maintenance IVF stopped. (5) Methamphetamine abuse Conclusion/Plan: Patient reports methamphetamine use as recently as 2 weeks ago. He states that he does not think he is ever gone to do it again. He is tired of living the life he has been living. His mother and his brothers have been in contact. They live in [place]. He states that once he is over this acute care episode they would like to pick him up and take him down to [place] to finish his medical care and wound care down there. I will get the phone numbers for her and his brothers to update them and to verify the discharge disposition
[2022-05-05] MEDS: MULTIVITAMIN W/MINERALS TABLET PO SCH (13:24)
--- NOTE | 2022-05-05 16:02 | ANESTHESIA PROCEDURE NOTE ---
Anesth Central Line Template - Central Line Central Line Preparation: Consent Obtained, Time out completed, Ultrasound used, Sterile prep and drape Central line location: Right Basilic Central line type: PICC Single Lumen Central line catheter tip site resides: Superior vena cava (SVC) Central line aftercare: Secured, Placement confirmed (with teleflex p wave confirmation, see anesthesia record for image. trimmed at 45, 3 cm exposed), No complications, Bundle checklist complete, Pt tolerated well
[2022-05-06] MEDS: PENICILLIN G POTASSIUM 5,000,000 UNIT in SODIUM CHLORIDE 0.9% MINIBAG 100 ML IV SCH ×6 (01:08→21:30)
[2022-05-06] MEDS: SODIUM CHLORIDE FLUSH 0.9% 10 ML SYRINGE IVP SCH ×3 (01:08→17:11)
[2022-05-06] MEDS: oxyCODONE 5 MG TABLET PO PRN ×2 (01:09→10:23)
[2022-05-06] MEDS: ACETAMINOPHEN 325 MG TABLET PO PRN ×2 (01:09→10:22)
--- NOTE | 2022-05-06 01:58 | Ultrasound Report ---
PROCEDURE: Duplex Lwr Ext Arterial Bilat INDICATIONS: severe infection, making sure no PVD TECHNIQUE: Color and pulse Doppler interrogation was performed of both lower extremity arterial systems, with im age documentation. COMPARISON: None. FINDINGS: Right lower extremity: Common femoral artery: 143 cm/sec, with monophasic flow. Deep femoral artery: 185 cm/sec, with triphasic flow. Proximal superficial femoral artery: 158 cm/sec, with monophasic flow. Mid superficial femoral artery: 117 cm/sec, with monophasic flow with mild spectral broadening. Distal superficial femoral artery: 193 cm/sec, with monophasic flow. Popliteal artery: 125 cm/sec, with monophasic flow. Posterior tibial artery: 132 cm/sec, with monophasic flow. Anterior tibial artery/dorsalis pedis: 71 cm/sec/105 cm/s, with monophasic flow. Gomez-scale imaging description: Limited evaluation due to body habitus. Calcified plaque demonstrate d. Left lower extremity: Common femoral artery: 120 cm/sec, with triphasic flow. Deep femoral artery: 78 cm/sec, with biphasic flow. Proximal superficial femoral artery: 132 cm/sec, with triphasic flow. Mid superficial femoral artery: 138 cm/sec, with triphasic flow. Distal superficial femoral artery: 125 cm/sec, with triphasic flow. Popliteal artery: 82 cm/sec, with triphasic flow. Posterior tibial artery: 17 cm/sec, with monophasic flow. Anterior tibial artery/dorsalis pedis: Not visualized proximally. 124 cm/s, with triphasic flow.. Gomez-scale imaging description: Limited evaluation due to body habitus. There is scattered atheroscl erotic plaque. IMPRESSION: 1. Scattered atherosclerotic vascular calcification compatible with peripheral vascular disease. 2. Increased velocities within the right anterior tibial artery proximally compatible with sequelae o f stenoses. 3. Proximal left anterior tibial artery not well visualized suspicious for occlusion. 4. Decreased velocities and monophasic flow within the left posterior tibial artery with monophasic f low. The findings are suggestive of poststenotic flow. 5. Focal increased velocities also demonstrated in the distal right sufficient femoral artery also co mpatible with sequelae of a stenosis. Reviewed by: Sunny Maier MD on 05/06/2022 1:56 AM PDT Approved by: Sunny Maier MD on 05/06/2022 1:56 AM PDT Station ID: [id number]
[2022-05-06 05:54] LABS: BASOPHILS % (AUTO) 0.7 %; EOSINOPHILS % (AUTO) 1.3 %; HCT - HEMATOCRIT 34.8 % (42.0-52.0); LYMPHOCYTES % (AUTO) 15.7 %; MEAN CORPUSCULAR HGB CONC 31.6 g/dL (32.0-36.0); MEAN CORPUSCULAR VOLUME 85.3 fL (80.0-94.0); MONOCYTES % (AUTO) 8.2 %; NEUTROPHILS % (AUTO) 64.8 %; PLT - PLATELET COUNT 477 10^3/uL (130-450); RED BLOOD COUNT 4.08 10^6/uL (4.70-6.10); RED CELL DISTRIBUTION WIDTH 15.7 % (12.0-15.0); WHITE BLOOD COUNT 14.8 x10^3/uL (4.8-10.8)
[2022-05-06 06:02] LABS: ABNORMAL LYMPHS % (MANUAL) 0 %
[2022-05-06 06:04] LABS: CALCIUM 7.9 mg/dL (8.5-10.3); CREATININE 0.8 mg/dL (0.6-1.2); POTASSIUM 4.4 mmol/L (3.5-5.0)
[2022-05-06 06:18] LABS: BAND NEUTROPHILS % (MANUAL) 10 %; DIFFERENTIAL COMMENT MANUAL DIFFERENTIAL; EOSINOPHILS # (MANUAL) 0.3 10^3/uL (0-0.7); LYMPHOCYTES # (MANUAL) 1.6 10^3/uL (1.5-3.5); LYMPHOCYTES % (MANUAL) 11 %; METAMYELOCYTES % (MANUAL) 1 %; MONOCYTES # (MANUAL) 0.6 10^3/uL (0.0-1.0); MYELOCYTES % (MANUAL) 2 %; NEUTROPHILS # (MANUAL) 11.8 10^3/uL (1.5-6.6); PLATELET ESTIMATE, MANUAL INCREASED (>450,000) (NORMAL); RBC MORPHOLOGY (MULTIPLE) NORMAL APPEARANCE (NORMAL)
[2022-05-06] MEDS: MULTIVITAMIN W/MINERALS TABLET PO SCH (10:17)
[2022-05-06] MEDS: ENOXAPARIN 40 MG/0.4 ML SYRINGE SUBQ SCH (10:17)
[2022-05-06] MEDS: SACCHAROMYCES BOULARDII 250 MG CAPSULE PO SCH ×2 (10:17→17:11)
[2022-05-06] MEDS: HYDROmorphone 2 MG/ML VIAL IVP PRN ×2 (11:37→21:30)
--- NOTE | 2022-05-06 15:46 | PROVIDER PROGRESS NOTE ---
Subjective - Subjective Subjective: sleepy. cooperative. no complaints Objective - Vital Signs/Intake & Output Vital Signs: Vital Signs x48h Temp Pulse Resp BP BP Pulse Ox 05/06/22 12:06 36.2 C L 86 20 157/74 H 97 05/06/22 07:46 36.6 C 85 20 137/68 H 98 Intake & Output: Intake & Output 05/03/22 05/04/22 05/05/22 05/06/22 23:59 23:59 23:59 23:59 Intake Total 3525 2826 2735 2080 Output Total 1940 1850 1575 650 Balance 8381 920 7192 1430 - Objective General Appearance: positive: No acute distress Respiratory: positive: No respiratory distress Extremities: positive: Other (very significant chronic bilateral edema with epidermolysis right greater than left with full thickness ulcer posterior right calf 6 x 6 cm. freely draining ulcer. minimal necrotic tissue that is sloughing with current care) - Lab Results Fish Bones: 05/06/22 05:05 05/06/22 05:05 Other Labs: Lab Results x24hrs 05/06/22 05/06/22 Range/Units 05:05 05:05 WBC 14.8 H (4.8-10.8) x10^3/uL RBC 4.08 L (4.70-6.10) 10^6/uL Hgb 11.0 L (14.0-18.0) g/dL Hct 34.8 L (42.0-52.0) % MCV 85.3 (80.0-94.0) fL MCH 27.0 (27.0-31.0) pg MCHC 31.6 L (32.0-36.0) g/dL RDW 15.7 H (12.0-15.0) % Plt Count 477 H (130-450) 10^3/uL MPV 10.0 (7.4-11.4) fL Neut # (Auto) Not Reportable Lymph # (Auto) Not Reportable [place] # (Auto) Not Reportable Eos # (Auto) Not Reportable Baso # (Auto) Not Reportable Absolute Nucleated RBC Not Reportable Total Counted 100 Band Neuts % (Manual) 10 (0 - 10) % Abnorm Lymph % (Manual) 0 % Metamyelocytes % 1 H ( - 0) % Myelocytes % 2 H ( - 0) % Nucleated RBC % Not Reportable Neutrophils # (Manual) 11.8 H (1.5-6.6) 10^3/uL Lymphocytes # (Manual) 1.6 (1.5-3.5) 10^3/uL Monocytes # (Manual) 0.6 (0.0-1.0) 10^3/uL Eosinophils # (Manual) 0.3 (0-0.7) 10^3/uL Basophils # (Manual) 0.0 (0-0.1) 10^3/uL Differential Comment MANUAL DIFFERENTIAL Platelet Estimate INCREASED (>450,000) (NORMAL) RBC Morph Micro Appear NORMAL APPEARANCE (NORMAL) Sodium 130 L (135-145) mmol/L Potassium 4.4 (3.5-5.0) mmol/L Chloride 95 L (101-111) mmol/L Carbon Dioxide 27 (21-32) mmol/L Anion Gap 8.0 (6-13) BUN 20 (6-20) mg/dL Creatinine 0.8 (0.6-1.2) mg/dL Estimated GFR (MDRD) 100 (>89) Glucose 126 H (70-100) mg/dL Calcium 7.9 L (8.5-10.3) mg/dL Sepsis Event Note (H) - Evaluation Current Stage of Sepsis: Resolved Possible source of Sepsis: positive: Skin/soft tissue - Sepsis Criteria Sepsis Criteria: Recorded Heart Rate greater than 90 bpm, WBC count greater than 10% bands, WBC count greater than 12,000 or less than 4000, Metabolic: lactate > 2 mmol/L Assessment/Plan - Problem List (1) Chronic wound of extremity Impression: agree with current care he is improving; however, does have a very significant problem. urgent surgery is not needed. agree in transfer to a hospital that can offer a higher level of care
--- NOTE | 2022-05-06 18:20 | PROVIDER PROGRESS NOTE ---
Progress Note May 06, 2022 6:10 PM I saw him this morning and he was in tears stating that his right leg was really hurting him. Even though he has been having daily dressing changes and bathing, the smell was much worse today from his body. Nursing to come into the bathroom to shower him again and to see if there were any more maggots in his wound and after uncovering the bandage he has had significant progressive necrosis of the right calf soft tissue area. The size of it is about 6 x 6 cm and there is surrounding blackness on the lips of the wound. Surrounding that is even more grayness and ecchymosis. He has not had any fevers. His white cell count continues to come down. Blood pressure is stable. I have called [facility], [place], Erick Mccarthy to transfer him for higher level of care. No one has any beds. Dr. Hoover, general surgery, from [facility] did say to call him back. If we could possibly temporize until Monday (today is Monday). Pictures were discussed. We did send the pics to [facility] transfer center and he was able to see the depth and severity of the wound. The patient was started on Dilaudid for pain control. That appears to be improving. Active Medications Acetaminophen (Acetaminophen 325 Mg Tablet) 650 mg PO Q4HR PRN PRN Reason: Pain 1 to 4, or Fever Last Admin: 05/06/22 10:22 Dose: 650 mg Enoxaparin Sodium (Enoxaparin 40 Mg/0.4 Ml Syringe) 40 mg SUBQ DAILY [facility]DR[facility] Last Admin: 05/06/22 10:17 Dose: 40 mg Hydromorphone HCl (Hydromorphone 2 Mg/Ml Vial) 2 mg IVP Q2H PRN PRN Reason: PAIN Last Admin: 05/06/22 11:37 Dose: 2 mg Penicillin G Potassium 5,000, (000 unit/ Sodium Chloride) 100 mls @ 100 mls/hr IV Q4HR SANDRA Last Admin: 05/06/22 17:11 Dose: 100 mls/hr Multivitamins/Minerals (Multivitamin W/Minerals Tablet) 1 tab PO DAILYWM [facility] Last Admin: 05/06/22 10:17 Dose: 1 tab Ondansetron HCl (Ondansetron 4 Mg/2 Ml Vial) 4 mg IVP Q6HR PRN PRN Reason: Nausea / Vomiting Last Admin: 05/04/22 01:19 Dose: 4 mg Oxycodone HCl (Oxycodone 5 Mg Tablet) 5 mg PO Q4HR PRN PRN Reason: PAIN Last Admin: 05/06/22 10:23 Dose: 5 mg Saccharomyces Boulardii (Saccharomyces Boulardii 250 Mg Capsule) 250 mg PO BIDWM [facility] Last Admin: 05/06/22 17:11 Dose: 250 mg Sodium Chloride (Sodium Chloride Flush 0.9% 10 Ml Syringe) 10 ml IVP PRN PRN PRN Reason: NEEDED PER PROVIDER ORDERS Sodium Chloride (Sodium Chloride Flush 0.9% 10 Ml Syringe) 10 ml IVP 0100,0900,1700 [facility] Last Admin: 05/06/22 17:11 Dose: 10 ml Temperature is 36.2. Heart rate 85. Blood pressure 150/73. Respirations 21 and unlabored. 95% on room air. Earlier today he required 3 L for 97% saturation. 6 foot, 1.5 inches tall. 132 kg. A disheveled malodorous 57-year-old male that looks much older than stated age. He is peeling face from his sunburn is improving. Neck is supple with shotty adenopathy. Lungs have coarse upper airway sounds. At 1 point he did develop a few breathy rhonchi that I had him cough up and they cleared. No use of accessory muscles. Regular rate and rhythm. Abdomen is obese, soft, nontender. Diffusely distended with this obesity, the strip of sunburn that he has over his lower abdomen/pannus is also improving. Normal bowel sounds. Last bowel movement was May 03., Urine is dark sofie. When he presented to the hospital both legs were edematous, loss of skin tissue from the maggots. The right leg was much worse than the left leg. The right leg was newly infected and he states that the left leg was infected for years. For the first few days he is done well and that we have cleaned up all the maggots that we can see. He has had daily showers and the wound has been dried. He is been placed on empiric antibiotic therapy. In spite of this, there is a sudden progression from yesterday today with increasing smell, and now a deep ulcer past muscle into the right calf. The surrounding tissue is black. It is draining. There is no discrete abscess. However as you tracked up the calf toward the back of the knee and popliteal fossa, that skin feels indurated and boggy. No redness, no heat just dark albert. Duplex arterial scan of the lower extremities has increased velocities through the right anterior tibial artery compatible with sequela of stenosis. Proximal left anterior tibial artery not well visualized suspicious for occlusion. Decreased velocities and monophasic flow within the left posterior tibial artery with monophasic flow suggestive of poststenotic flow. Focal increased velocities also demonstrated in the distal right femoral artery compatible with sequela of stenosis. Venous duplex is without DVT in the right or left lower extremity. This was done on May 04 before the subcutaneous tissue breakdown. Abdominal ultrasound done May 04 is for the large protuberant abdomen to make sure he did not have ascites showed him to have trace perihepatic fluid. Hepatomegaly and suspected steatosis. Main portal venous flow is hepatopetal with elevated velocity there is nonspecific but correlate clinically for chronic liver disease. Blood culture from May 02 shows strep pyogenes. Blood culture from May 04 is without growth after 2 days. White cell count 14.8. He started to 26.1. Sodium is coming down to 130 and he was 128 on admission. BUN and creatinine are normal. Random glucose 126. Assessment/Plan (1) Soft tissue necrosis right calf This is a gentleman who has had chronic wounds. More in the left leg than on the right leg. The chronic wounds go all the way back 8 years he tells me the right leg wounds are a relatively recent phenomena over the last few weeks, maybe months, he's not sure. When he presented he had cellulitis of shins and calves that was pretty severe, right worse than left. He had chronic ulcers but they were not deep. More than anything they were malodorous and present over over the shins and calves with 100s of maggots that needed to be cleaned out of the wounds. the right leg was more edematous than the left, red, hot, and tender to touch. Over the last few days the nurses have been diligently showering him off, drying his wounds, and taking out the maggots. He was also started on empiric antibiotic therapy in the form of Zosyn and vancomycin when he first came in. He was changed to penicillin May 04 when the identification and sensitivities were strep pyogenes and the case was discussed with [facility] infectious disease on-call. He has responded to all of this with a reduction in white cell count. No fever. But between yesterday and today, the smell in his room became much worse. In removing the dressings and taking him to the shower, he is lost significant soft tissue due to necrosis in the right calf. I fear there is surrounding necrosis that still is not quite evident by induration and exam. We were able to get a local surgeon who is not on-call to come in and see the wound. We have already had general surgery see him when he first came in but they did not recommend debridement or treatment at that time. Today surgeon says that there is a definite loss of soft tissue, necrosis, but since the patient is not systematically infected with sepsis, and is hemodynamically stable, we could probably temporize until Monday. As such, I will continue dressing changes. Packed the wound. Continue antibiotics. Keep it clean and dry. And reconsult [facility] on Monday. If the patient decompensates with sepsis, worsening infection, worsening tissue loss, I will call them during the weekend. (2) Bacteremia due to Streptococcus pyogenes Impression: He presented as a disheveled gentleman who lives in a garage provided by his friend. Has probably not showered in months. Cannot really say why. Has had a chronic leg wound on the left for 8 years but recently developed leg wounds on the right lower extremity. He has had maggots in his left leg for a very long time and those have increased in severity. Then started having maggots in the right leg in the last few weeks. He seems to have been developed subsequent cellulitis. On admit He had met criteria for sepsis. Sepsis criteria have now resolved since 05/04. White blood cell count was 26.1 with 14% bands. Lactic acid 3.0. Lactic acid has come down to 1.9. White cell count is still elevated at 22.9>>18.7>>14.8 and continues to drop slowly. Blood cultures are positive and have been identified as having strep pyogenes bacteremia. He was started on vancomycin and Zosyn. With 05/04 culture identifying him as strep pyogenes in the blood he was transitioned to penicillin. I spoke to infectious disease zone supervisor firearms at 05/04 that feels that single agent penicillin every 4 hours will be enough. She states that we should aim for about 14 days. Echocardiogram has overall left ventricular systolic function normal at 60 to 65%. Technically difficult study due to because of his limited access due to body habitus. He has impaired relaxation consistent with grade 1 diastolic dysfunction. The valves were visualized. No vegetations. But several lesions could not be excluded. Blood cultures have been repeated and results are pending from May 04. Plan: Penicillin for total of 14 days. Today #11/29. To complete a full 14 days will be completing antibiotics on May 18.He has a PICC line in place now. Repeat blood cultures. (3) Cellulitis of right and left lower extremity Conclusion/Plan: General surgery had been consulted on admission. They had seen the patient but felt that at that time that management boiled down to daily baths and the maggots would slowly pop up through the wounds and . She did not feel debridement was necessary. She would recommend that he be seen by wound clinic if possible. Wound clinic states they do not come to do consult on [facility] anymore. We are going to try and get him an appointment in the wound clinic and wheel him down the hallway if we can get an appointment. Today, the surgeon who saw him is not in town and off call. There is no surgeon zone supervisor firearms. A surgeon who was doing elective cases in the OR was called by me. He is not zone supervisor firearms. I asked him if he could please see this patient. I understood that he would not do surgery. That this is not his patient. That he is not on- call. But if he could be kind enough to guide me on where to go with this. He did leave a note in the chart. He does agree that we can wait until Monday to do definitive surgery with [facility] if possible. The patient is hemodynamically stable without overt signs of sepsis. (3) Chronic wound of extremity Conclusion/Plan: As above. He does have peripheral vascular disease and arterial Dopplers. (4) ROBYN (acute kidney injury) resolved Conclusion/Plan: Creatinine 1.5 with estimated GFR of 48. Now 0.8 and 20 respectively. Patient was given a 1 L bolus of normal saline in the emergency room and was on IV hydration with normal saline at 125 mL/h . Now that he is eating and drinking, maintenance IVF stopped. (5) Methamphetamine abuse Conclusion/Plan: Patient reports methamphetamine use as recently as 2 weeks ago. He states that he does not think he is ever gone to do it again. He is tired of living the life he has been living. His mother and his brothers have been in contact. They live in [place]. He states that once he is over this acute care episode they would like to pick him up and take him down to [place] to finish his [facility] care and wound care down there. I will get the phone numbers for her and his brothers to update them and to verify the discharge disposition (6) Acute pain in limb He has severe soft tissue necrosis that is quite painful. He has been allowing us to bathe him in the shower, and it was all he could do to sit in the chair and let us clean him today. He would not allow us to touch the actual wound. Pictures were placed in the chart. I have started him on IV Dilaudid as needed.
[2022-05-07] MEDS: PENICILLIN G POTASSIUM 5,000,000 UNIT in SODIUM CHLORIDE 0.9% MINIBAG 100 ML IV SCH ×6 (00:35→20:40)
[2022-05-07] MEDS: oxyCODONE 5 MG TABLET PO PRN ×4 (00:41→23:56)
[2022-05-07] MEDS: SODIUM CHLORIDE FLUSH 0.9% 10 ML SYRINGE IVP SCH ×3 (00:42→16:42)
[2022-05-07 05:53] LABS: BASOPHILS % (AUTO) 0.6 %; EOSINOPHILS % (AUTO) 1.5 %; HCT - HEMATOCRIT 35.7 % (42.0-52.0); HGB - HEMOGLOBIN 11.2 g/dL (14.0-18.0); MEAN CORPUSCULAR HEMOGLOBIN 27.1 pg (27.0-31.0); MEAN CORPUSCULAR HGB CONC 31.4 g/dL (32.0-36.0); MEAN CORPUSCULAR VOLUME 86.4 fL (80.0-94.0); MEAN PLATELET VOLUME 9.8 fL (7.4-11.4); MONOCYTES % (AUTO) 7.8 %; NEUTROPHILS % (AUTO) 67.9 %; PLT - PLATELET COUNT 496 10^3/uL (130-450); RED BLOOD COUNT 4.13 10^6/uL (4.70-6.10); RED CELL DISTRIBUTION WIDTH 15.8 % (12.0-15.0); WHITE BLOOD COUNT 12.5 x10^3/uL (4.8-10.8)
[2022-05-07 06:04] LABS: CALCIUM 8.1 mg/dL (8.5-10.3); CREATININE 0.8 mg/dL (0.6-1.2); POTASSIUM 4.9 mmol/L (3.5-5.0)
[2022-05-07 06:09] LABS: ABNORMAL LYMPHS % (MANUAL) 0 %
[2022-05-07 06:31] LABS: BAND NEUTROPHILS % (MANUAL) 7 %; DIFFERENTIAL COMMENT MANUAL DIFFERENTIAL; LYMPHOCYTES # (MANUAL) 1.6 10^3/uL (1.5-3.5); LYMPHOCYTES % (MANUAL) 13 %; METAMYELOCYTES % (MANUAL) 1 %; MYELOCYTES % (MANUAL) 1 %; NEUTROPHILS # (MANUAL) 9.6 10^3/uL (1.5-6.6); PLATELET ESTIMATE, MANUAL INCREASED (>450,000) (NORMAL); RBC MORPHOLOGY (MULTIPLE) NORMAL APPEARANCE (NORMAL)
[2022-05-07] MEDS: SACCHAROMYCES BOULARDII 250 MG CAPSULE PO SCH ×2 (10:13→16:42)
[2022-05-07] MEDS: MULTIVITAMIN W/MINERALS TABLET PO SCH (10:14)
[2022-05-07] MEDS: ENOXAPARIN 40 MG/0.4 ML SYRINGE SUBQ SCH (10:14)
--- NOTE | 2022-05-07 13:58 | PROVIDER PROGRESS NOTE ---
Progress Note May 07, 2022 1:52 PM Mr. Turcios is awake, alert. Miserable. States that his leg is in terrible pain. It is always hurting right now but when we do the dressing changes its even worse. I explained to him that we did call [facility] yesterday, as well as all the other hospitals like all, and none have a bed. I am good to be calling [facility] tomorrow to reinstitute a possible transfer for Monday. He does not want to stay here anymore. He is going to call his family and see if they can come pick him up and he would like to go to [facility]. I explained that is probably not a great idea. While he is hemodynamically stable at this time, this wound could get even more infected wi thout antibiotics for the time it would take him to get down there. He says he will talk to his family and let me know. Active Medications Acetaminophen (Acetaminophen 325 Mg Tablet) 650 mg PO Q4HR PRN PRN Reason: Pain 1 to 4, or Fever Last Admin: 05/06/22 10:22 Dose: 650 mg Enoxaparin Sodium (Enoxaparin 40 Mg/0.4 Ml Syringe) 40 mg SUBQ DAILY [facility] Last Admin: 05/07/22 10:14 Dose: 40 mg Hydromorphone HCl (Hydromorphone 2 Mg/Ml Vial) 2 mg IVP Q2H PRN PRN Reason: PAIN Last Admin: 05/06/22 21:30 Dose: 2 mg Penicillin G Potassium 5,000, (000 unit/ Sodium Chloride) 100 mls @ 100 mls/hr IV Q4HR [facility] Last Admin: 05/07/22 13:10 Dose: 100 mls/hr Multivitamins/Minerals (Multivitamin W/Minerals Tablet) 1 tab PO DAILYWM [facility] Last Admin: 05/07/22 10:14 Dose: 1 tab Ondansetron HCl (Ondansetron 4 Mg/2 Ml Vial) 4 mg IVP Q6HR PRN PRN Reason: Nausea / Vomiting Last Admin: 05/04/22 01:19 Dose: 4 mg Oxycodone HCl (Oxycodone 5 Mg Tablet) 5 mg PO Q4HR PRN PRN Reason: PAIN Last Admin: 05/07/22 10:12 Dose: 5 mg Saccharomyces Boulardii (Saccharomyces Boulardii 250 Mg Capsule) 250 mg PO BIDWM [facility] Last Admin: 05/07/22 10:13 Dose: 250 mg Sodium Chloride (Sodium Chloride Flush 0.9% 10 Ml Syringe) 10 ml IVP PRN PRN PRN Reason: NEEDED PER PROVIDER ORDERS Sodium Chloride (Sodium Chloride Flush 0.9% 10 Ml Syringe) 10 ml IVP 0100,0900,1700 [facility] Last Admin: 05/07/22 10:15 Dose: 10 ml Temperature is 37 1. Heart rate is 96. Blood pressure 146/71. Respirations 18. 96% on room air. 6 foot 1 and half inch male, 132 kg Bearded, disheveled Neck supple no JVD Diminished breath sounds at the bases but otherwise clear. Regular rate and rhythm. Abdomen is hugely protuberant. Small reducible umbilical hernia. Normal bowel sounds, nontender. Skin: He is sunburn is peeling of his right anterior chest and right arm. It is almost completely resolved over the lower strip of his abdomen. Face is also starting to peel. Both legs are densely red from rubor and infection. Right leg circumference is larger than left leg. I feel that there is emy necrotic tissue around the surrounding deep 6 x 6 ulcer of the right calf. I also feel that the surrounding tissue that is indurated, grayish in color is probably also necrotic tissue. Drainage is bloody, serous but no pus. The left osuna and calf also have maceration but it superficial. There is surrounding erythema and heat. Much less than on admission. Sodium 132. Random glucose 121. The rest of his BMP is normal. White cell count continues to come down and is 12.5. Assessment/Plan (1) Soft tissue necrosis right calf This is a gentleman who has had chronic wounds. More in the left leg than on the right leg. The chronic wounds go all the way back 8 years he tells me the right leg wounds are a relatively recent phenomena over the last few weeks, maybe months, he's not sure. When he presented he had cellulitis of shins and calves that was pretty severe, right worse than left. He had chronic ulcers but they were not deep. More than anything they were malodorous and present over over the shins and calves with 100s of maggots that needed to be cleaned out of the wounds. the right leg was more edematous than the left, red, hot, and tender to touch. Over the last few days the nurses have been diligently showering him off, drying his wounds, and taking out the maggots. He was also started on empiric antibiotic therapy in the form of Zosyn and vancomycin when he first came in. He was changed to penicillin May 04 when the identification and sensitivities were strep pyogenes and the case was discussed with [facility] infectious disease on-call. He has responded to all of this with a reduction in white cell count. No fever. But on 05/06 the smell in his room became much worse. In removing the dressings and taking him to the shower, he has lost significant soft tissue due to necrosis in the right calf. I fear there is surrounding necrosis that still is not quite evident by induration and exam. We were able to get a local surgeon who is not on-call to come in and see the wound. We have already had general surgery see him when he first came in but, at that time, they did not recommend debridement. 05/06 the surgeon who graciously came in although not operations supervisor 2nd shift and not required to come in says that there is a definite loss of soft tissue, necrosis, but since the patient is not systemically infected with sepsis, and is hemodynamically stable, we could probably temporize until Monday. As such, I am continuing dressing changes. Packed the wound. Continue antibiotics. Keep it clean and dry. I did call the [facility] transfer center today. They said to call back Monday. Primary call again tomorrow. The patient himself to let me know if his plan to leave [place] and then go to [place] is something he wants to proceed with. (2) Bacteremia due to Streptococcus pyogenes Impression: He presented as a disheveled gentleman who lives in a garage provided by his friend. Has probably not showered in months. Cannot really say why. Has had a chronic leg wound on the left for 8 years but recently developed leg wounds on the right lower extremity. He has had maggots in his left leg for a very long time and those have increased in severity. Then started having maggots in the right leg in the last few weeks. He seems to have been developed subsequent cellulitis. On admit He had met criteria for sepsis. Sepsis criteria have now resolved since 05/04. White blood cell count was 26.1 with 14% bands. Lactic acid 3.0. Lactic acid has come down to 1.9. White cell count is still elevated at 22.9>>18.7>>14.8 and continues to drop slowly. Blood cultures are positive and have been identified as having strep pyogenes bacteremia. He was started on vancomycin and Zosyn. With 05/04 culture identifying him as strep pyogenes in the blood he was transitioned to penicillin. I spoke to infectious disease operations supervisor 2nd shift at 05/04 that feels that single agent penicillin every 4 hours will be enough. She states that we should aim for about 14 days. Echocardiogram has overall left ventricular systolic function normal at 60 to 65%. Technically difficult study due to because of his limited access due to body habitus. He has impaired relaxation consistent with grade 1 diastolic dysfunction. The valves were visualized. No vegetations. But several lesions could not be excluded. Blood cultures have been repeated and results are negative from May 04. Plan: Penicillin for total of 14 days. Today #12/27. To complete a full 14 days will be completing antibiotics on May 18. He has a PICC line in place now. (3) Cellulitis of right and left lower extremity Conclusion/Plan: General surgery had been consulted on admission. They had seen the patient but felt that at that time that management boiled down to daily baths and the maggots would slowly pop up through the wounds and . She did not feel debridement was necessary. She would recommend that he be seen by wound clinic if possible. Wound clinic states they do not come to do consult on [facility] anymore. We are going to try and get him an appointment in the wound clinic and wheel him down the hallway if we can get an appointment. the surgeon who saw him on admission is not in town and off call. There is no surgeon operations supervisor 2nd shift. A surgeon who was doing elective cases in the OR 05/06 was called by me. He is not operations supervisor 2nd shift. I asked him if he could please see this patient. I understood that he would not do surgery. That this is not his patient. That he is not on-call. But if he could be kind enough to guide me on where to go with this. He did leave a note in the chart. He does agree that we can wait until Monday to do definitive surgery with [facility] if possible. The patient is hemodynamically stable without overt signs of sepsis. (3) Chronic wound of extremity Conclusion/Plan: As above. He does have peripheral vascular disease and arterial Dopplers. The left leg is slightly red and ozzing now but the right drains so much that it's wrapped in chucks with change tid to qid. (4) ROBYN (acute kidney injury) resolved Conclusion/Plan: Creatinine 1.5 with estimated GFR of 48. Now 0.8 and 18 respectively. Patient was given a 1 L bolus of normal saline in the emergency room and was on IV hydration with normal saline at 125 mL/h . Now that he is eating and drinking, maintenance IVF stopped. (5) Methamphetamine abuse Conclusion/Plan: Patient reports methamphetamine use as recently as 2 weeks ago. He states that he does not think he is ever gone to do it again. He is tired of living the life he has been living. His mother and his brothers have been in contact. They live in [place]. He is stating that his family will come get him now. He doesn't want to be here or [facility]. He will let me know during the day if he is really leaving AMA (6) Acute pain in limb He has severe soft tissue necrosis that is quite painful. He has been allowing us to bathe him in the shower, and it was all he could do to sit in the chair and let us clean him today. He would not allow us to touch the actual wound. Pictures were placed in the chart. I have started him on IV Dilaudid as needed.
[2022-05-07] MEDS: HYDROmorphone 2 MG/ML VIAL IVP PRN (16:40)
[2022-05-08] MEDS: PENICILLIN G POTASSIUM 5,000,000 UNIT in SODIUM CHLORIDE 0.9% MINIBAG 100 ML IV SCH ×6 (01:13→21:04)
[2022-05-08] MEDS: SODIUM CHLORIDE FLUSH 0.9% 10 ML SYRINGE IVP SCH ×3 (01:13→17:19)
[2022-05-08] MEDS: ACETAMINOPHEN 325 MG TABLET PO PRN (05:10)
[2022-05-08] MEDS: oxyCODONE 5 MG TABLET PO PRN ×3 (05:10→17:18)
[2022-05-08] MEDS: MULTIVITAMIN W/MINERALS TABLET PO SCH (09:17)
[2022-05-08] MEDS: SACCHAROMYCES BOULARDII 250 MG CAPSULE PO SCH ×2 (09:18→17:18)
[2022-05-08] MEDS: polyethylene glycoL 3350 17 GM PACKET PO SCH (09:19)
[2022-05-08] MEDS: ENOXAPARIN 40 MG/0.4 ML SYRINGE SUBQ SCH (09:20)
--- NOTE | 2022-05-08 11:23 | PROVIDER PROGRESS NOTE ---
Progress Note May 08, 2022 11:28 AM Yesterday he told us that he really wanted to leave and he was going to leave AMA. He just wanted to get all of his care down in [place] where his family was. So he told me to expect that his mother and brothers would be picking him up. He states that he did speak to them. Once he described the wound to them, however, they do not want to pick him up. They told him that he really needs to get the wound taken care of here and then once he was ready for to be discharged for chronic care, then they would pick him up. He is disappointed. He is just tired. Pain from the right leg specifically is barely tolerated. But he denies chest pain, cough, shortness of breath. No diarrhea. Active Medications Acetaminophen (Acetaminophen 325 Mg Tablet) 650 mg PO Q4HR PRN PRN Reason: Pain 1 to 4, or Fever Last Admin: 05/08/22 05:10 Dose: 650 mg Enoxaparin Sodium (Enoxaparin 40 Mg/0.4 Ml Syringe) 40 mg SUBQ DAILY [facility] Last Admin: 05/08/22 09:20 Dose: 40 mg Hydromorphone HCl (Hydromorphone 2 Mg/Ml Vial) 2 mg IVP Q2H PRN PRN Reason: PAIN Last Admin: 05/07/22 16:40 Dose: 2 mg Penicillin G Potassium 5,000, (000 unit/ Sodium Chloride) 100 mls @ 100 mls/hr IV Q4HR [facility] Last Infusion: 05/08/22 10:20 Dose: Infused Multivitamins/Minerals (Multivitamin W/Minerals Tablet) 1 tab PO DAILYWM [facility] Last Admin: 05/08/22 09:17 Dose: 1 tab Ondansetron HCl (Ondansetron 4 Mg/2 Ml Vial) 4 mg IVP Q6HR PRN PRN Reason: Nausea / Vomiting Last Admin: 05/04/22 01:19 Dose: 4 mg Oxycodone HCl (Oxycodone 5 Mg Tablet) 5 mg PO Q4HR PRN PRN Reason: PAIN Last Admin: 05/08/22 05:10 Dose: 5 mg Polyethylene Glycol (Polyethylene Glycol 3350 17 Gm Packet) 17 gm PO DAILY [facility] Last Admin: 05/08/22 09:19 Dose: 17 gm Saccharomyces Boulardii (Saccharomyces Boulardii 250 Mg Capsule) 250 mg PO BIDWM [facility] Last Admin: 05/08/22 09:18 Dose: 250 mg Sodium Chloride (Sodium Chloride Flush 0.9% 10 Ml Syringe) 10 ml IVP PRN PRN PRN Reason: NEEDED PER PROVIDER ORDERS Sodium Chloride (Sodium Chloride Flush 0.9% 10 Ml Syringe) 10 ml IVP 0100,0900,1700 [facility] Last Admin: 05/08/22 10:21 Dose: Not Given Temperature is 36.5. Heart rate 85. Blood pressure 132/70. Respirations 17. 98% on room air. 6 foot 1-1/2 inch, 132 kg Tall, disheveled, malodorous man. He has had daily baths while here and I think the odor is strictly from his leg. There is sunburn of his face, shoulders, upper chest wall, have all peeled. The sunburn on his lower abdomen skin is almost resolved. Shotty cervical neck adenopathy Diminished breath sounds at the bases but otherwise clear with slow unlabored respiration and no respiratory distress PMI normally placed regular rate and rhythm Abdomen is hugely protuberant, soft, nontender with an easily reducible umbilical hernia. Normal bowel sounds. Last bowel movement May 03. Extremities: The left leg still has macerated tissue and I have not seen maggots for at least 3 days. This was the leg that was always chronically infected. He has redness, induration, heat but all of this is much less tense and ugly looking than it was on admission. Serous drainage. Geographically it over his anterior osuna and almost all of the back calf. The right leg has lost a substantial amount of soft tissue. He is lost muscle, skin, fat. Down to fascia in certain areas. It is at least a 7 x 7 cm loss. I think it is larger than it was before. Malodorous, serosanguineous drainage. Around the surrounding ulcer is black ellipse of skin. Very thin margin. Surrounding fat central loss especially in the upper pole in the calf as a goes toward the popliteal fossa he has grayish scaling indurated skin that I think also is probably at risk. Assessment/Plan (1) Soft tissue necrosis right calf This is a gentleman who has had chronic wounds. More in the left leg than on the right leg. The chronic wounds go all the way back 8 years he tells me the right leg wounds are a relatively recent phenomena over the last few weeks, maybe months, he's not sure. When he presented he had cellulitis of shins and calves that was pretty severe, right worse than left. He had chronic ulcers but they were not deep. More than anything they were malodorous and present over over the shins and calves with 100s of maggots that needed to be cleaned out of the wounds. the right leg was more edematous than the left, red, hot, and tender to touch. Over the last few days the nurses have been diligently showering him off, drying his wounds, and taking out the maggots. He was also started on empiric antibiotic therapy in the form of Zosyn and vancomycin when he first came in. He was changed to penicillin May 04 when the identification and sensitivities were strep pyogenes and the case was discussed with [facility] infectious disease on-call. He has responded to all of this with a reduction in white cell count. No fever. But on 05/06 the smell in his room became much worse. In removing the dressings and taking him to the shower, he has lost significant soft tissue due to necrosis in the right calf. I fear there is surrounding necrosis that still is not quite evident by induration and exam. [facility] [place] [facility] for [facility] level of care. No one has any beds. Dr. Hoover, general surgery, from [facility] did say to call him back. If we could possibly temporize until Wednesday 05/09. Pictures were discussed. We did send the pics to [facility] transfer mac[facility]ur and he was able to see the depth and severity of the wound. As such, I continue what we were doing. We are wrapping the legs and shocks. Removing the checks throwing away and putting new ones on. Up to 3-4 times a day. He drained so much liquid from his legs that routine bandages are soaked through. No packing the wound since he drains so much. Continue antibiotics. Keep it clean and dry. I did call the [facility] transfer center 05/07 and no beds. they did ask me to call on Monday to see how their boarding status and OR status was. However, today is Monday. I fear that the Monday chatterjee will be upon them and they will not have any beds or ability to help me. So I am calling the transfer center again today and I have left the patient's name, my name, and have the on- call surgeon give me a call today. On May 07, the patient also stated he wanted to leave AMA. He was calling his family in [place] to come get him. When I carefully requestioned him reguarding this issue, he states that his family is not ready to pick him up. They said that he really needs to get better and take care of this leg here before they are willing to take him home. Today I have called [facility] again. I have asked to speak to the surgeon sanitation engineer. Although the patient is stable, I fear I may lose any possibility of transferring him if I wait till Monday. Looking at the boarding status for [facility], they are down to 10 borders. After speaking to them, the Transfer nurse wants our surgeon to speak to their surgeon tomorrow to possibly coordinate. (2) Bacteremia due to Streptococcus pyogenes Impression: He presented as a disheveled gentleman who lives in a garage provided by his friend. Has probably not showered in months. Cannot really say why. Has had a chronic leg wound on the left for 8 years but recently developed leg wounds on the right lower extremity. He has had maggots in his left leg for a very long time and those have increased in severity. Then started having maggots in the right leg in the last few weeks. He seems to have been developed subsequent cellulitis. On admit He had met criteria for sepsis. Sepsis criteria have now resolved since 05/04. White blood cell count was 26.1 with 14% bands. Lactic acid 3.0. Lactic acid has come down to 1.9. White cell count is still elevated at 22.9>>18.7>>14.8 and continues to drop slowly. Blood cultures are positive and have been identified as having strep pyogenes bacteremia. He was started on vancomycin and Zosyn. With 05/04 culture identifying him as strep pyogenes in the blood he was transitioned to penicillin. I spoke to infectious disease sanitation engineer at 05/04 that feels that single agent penicillin every 4 hours will be enough. She states that we should aim for about 14 days. Echocardiogram has overall left ventricular systolic function normal at 60 to 65%. Technically difficult study due to because of his limited access due to body habitus. He has impaired relaxation consistent with grade 1 diastolic dysfunction. The valves were visualized. No vegetations. But several lesions could not be excluded. Blood cultures have been repeated and results are negative from May 04. Plan: Penicillin for total of 14 days. Today #01/27. To complete a full 14 days, he will be completing antibiotics on May 18. He has a PICC line in place now. (3) Cellulitis of right and left lower extremity Conclusion/Plan: General surgery had been consulted on admission. They had seen the patient but felt that at that time that management boiled down to daily baths and the maggo ts would slowly pop up through the wounds and . She did not feel debridement was necessary. She would recommend that he be seen by wound clinic if possible. Wound clinic states they do not come to do consult on [facility] anymore. We are going to try and get him an appointment in the wound clinic and wheel him down the hallway if we can get an appointment. 05/06 the surgeon who saw him on admission is not in town and off call. There is no surgeon sanitation engineer. A surgeon who was doing elective cases in the OR 05/06 was called by me. He was not sanitation engineer. I asked him if he could please see this p atient. I understood that he would not do surgery. That this was not his patient. that he was not on-call. But if he could be kind enough to guide me on where to go with this. He did leave a note in the chart. He does agree that we can wait until Monday to do definitive surgery with [facility] if possible. The patient is hemodynamically stable without overt signs of sepsis. I will call the first surgeon tomorrow to see if they can speak to [facility] and let me know what to do with this unfortunate man's leg. (3) Chronic wound of extremity Conclusion/Plan: As above. He does have peripheral vascular disease and arterial Dopplers. The left leg is slightly red and oozing now but the right drains so much that it's wrapped in chucks with change tid to qid. (4) ROBYN (acute kidney injury) resolved Conclusion/Plan: Creatinine 1.5 with estimated GFR of 48. Now 0.8 and 18 respectively. Patient was given a 1 L bolus of normal saline in the emergency room and was on IV hydration with normal saline at 125 mL/h . Now that he is eating and drinking, maintenance IVF stopped. Labs in am, none today. (5) Methamphetamine abuse Conclusion/Plan: Patient reports methamphetamine use as recently as 2 weeks ago. He states that he does not think he is ever gone to do it again. He is tired of living the life he has been living. His mother and his brothers have been in contact. They live in [place]. He is stating that his family will come get him now. He doesn't want to be here or [facility]. He will let me know during the day if he is really leaving AMA (6) Acute pain in limb He has severe soft tissue necrosis that is quite painful. He has been allowing us to bathe him in the shower, and it was all he could do to sit in the chair and let us clean him today. He would not allow us to touch the actual wound. Pictures were placed in the chart. I have started him on IV Dilaudid as needed.
[2022-05-08] MEDS: HYDROmorphone 2 MG/ML VIAL IVP PRN (21:04)
[2022-05-09] MEDS: SODIUM CHLORIDE FLUSH 0.9% 10 ML SYRINGE IVP SCH ×3 (00:55→16:58)
[2022-05-09] MEDS: oxyCODONE 5 MG TABLET PO PRN ×3 (00:55→13:11)
[2022-05-09] MEDS: HYDROmorphone 2 MG/ML VIAL IVP PRN ×4 (00:56→21:18)
[2022-05-09] MEDS: PENICILLIN G POTASSIUM 5,000,000 UNIT in SODIUM CHLORIDE 0.9% MINIBAG 100 ML IV SCH ×6 (00:58→20:55)
[2022-05-09 05:20] LABS: BASOPHILS # (AUTO) 0.1 10^3/uL (0.0-0.1); BASOPHILS % (AUTO) 0.5 %; EOSINOPHILS # (AUTO) 0.2 10^3/uL (0.0-0.7); HCT - HEMATOCRIT 33.1 % (42.0-52.0); HGB - HEMOGLOBIN 10.5 g/dL (14.0-18.0); LYMPHOCYTES # (AUTO) 2.2 10^3/uL (1.5-3.5); LYMPHOCYTES % (AUTO) 18.2 %; MEAN CORPUSCULAR HEMOGLOBIN 27.4 pg (27.0-31.0); MEAN CORPUSCULAR HGB CONC 31.7 g/dL (32.0-36.0); MEAN CORPUSCULAR VOLUME 86.4 fL (80.0-94.0); MEAN PLATELET VOLUME 9.3 fL (7.4-11.4); MONOCYTES # (AUTO) 1.2 10^3/uL (0.0-1.0); MONOCYTES % (AUTO) 10.1 %; NEUTROPHILS # (AUTO) 8.2 10^3/uL (1.5-6.6); NEUTROPHILS % (AUTO) 66.3 %; PLT - PLATELET COUNT 485 10^3/uL (130-450); RED BLOOD COUNT 3.83 10^6/uL (4.70-6.10); RED CELL DISTRIBUTION WIDTH 15.9 % (12.0-15.0); WHITE BLOOD COUNT 12.3 x10^3/uL (4.8-10.8)
[2022-05-09 05:29] LABS: CALCIUM 7.9 mg/dL (8.5-10.3); CREATININE 0.9 mg/dL (0.6-1.2); POTASSIUM 4.4 mmol/L (3.5-5.0)
[2022-05-09] MEDS: polyethylene glycoL 3350 17 GM PACKET PO SCH (08:03)
[2022-05-09] MEDS: ENOXAPARIN 40 MG/0.4 ML SYRINGE SUBQ SCH (08:03)
[2022-05-09] MEDS: MULTIVITAMIN W/MINERALS TABLET PO SCH (08:03)
[2022-05-09] MEDS: SACCHAROMYCES BOULARDII 250 MG CAPSULE PO SCH ×2 (08:03→16:58)
[2022-05-09] MEDS: ASCORBIC ACID 500 MG TABLET PO SCH (08:21)
[2022-05-09] MEDS: ZINC SULFATE 220 MG CAPSULE PO SCH (08:21)
--- NOTE | 2022-05-09 16:10 | PROVIDER PROGRESS NOTE ---
Progress Note I have called [facility] twice today. First was through ask if they had the bed. This that they would get back to me. Second phone call was to remind them that I was still waiting for a phone call and they asked me to please have our surgeon call their surgeon. As such I gave them the phone number of Dr. Martinez. She is not on-call today. She is just had eye surgery and cannot be operating but was willing to give an opinion. The patient himself is in a holding pattern. He is sleepy, tired. Pain is still severe at times but controlled to an acceptable level. No fevers, no chills. Active Medications Acetaminophen (Acetaminophen 325 Mg Tablet) 650 mg PO Q4HR PRN PRN Reason: Pain 1 to 4, or Fever Last Admin: 05/08/22 05:10 Dose: 650 mg Ascorbic Acid (Ascorbic Acid 500 Mg Tablet) 500 mg PO DAILY [facility] Last Admin: 05/09/22 08:21 Dose: 500 mg Enoxaparin Sodium (Enoxaparin 40 Mg/0.4 Ml Syringe) 40 mg SUBQ DAILY [facility] Last Admin: 05/09/22 08:03 Dose: 40 mg Hydromorphone HCl (Hydromorphone 2 Mg/Ml Vial) 2 mg IVP Q2H PRN PRN Reason: PAIN Last Admin: 05/09/22 08:03 Dose: 2 mg Penicillin G Potassium 5,000, (000 unit/ Sodium Chloride) 100 mls @ 100 mls/hr IV Q4HR [facility] Last Infusion: 05/09/22 14:42 Dose: Infused Multivitamins/Minerals (Multivitamin W/Minerals Tablet) 1 tab PO DAILYWM [facility] Last Admin: 05/09/22 08:03 Dose: 1 tab Ondansetron HCl (Ondansetron 4 Mg/2 Ml Vial) 4 mg IVP Q6HR PRN PRN Reason: Nausea / Vomiting Last Admin: 05/04/22 01:19 Dose: 4 mg Oxycodone HCl (Oxycodone 5 Mg Tablet) 5 mg PO Q4HR PRN PRN Reason: PAIN Last Admin: 05/09/22 13:11 Dose: 5 mg Polyethylene Glycol (Polyethylene Glycol 3350 17 Gm Packet) 17 gm PO DAILY [facility] Last Admin: 05/09/22 08:03 Dose: 17 gm Saccharomyces Boulardii (Saccharomyces Boulardii 250 Mg Capsule) 250 mg PO BIDWM [facility] Last Admin: 05/09/22 08:03 Dose: 250 mg Sodium Chloride (Sodium Chloride Flush 0.9% 10 Ml Syringe) 10 ml IVP PRN PRN PRN Reason: NEEDED PER PROVIDER ORDERS Sodium Chloride (Sodium Chloride Flush 0.9% 10 Ml Syringe) 10 ml IVP 0100,0900,1700 [facility] Last Admin: 05/09/22 08:05 Dose: 10 ml Zinc Sulfate (Zinc Sulfate 220 Mg Capsule) 220 mg PO DAILY [facility] Stop: 05/15/22 09:00 Last Admin: 05/09/22 08:21 Dose: 220 mg Temperature is 36.5. Heart rate 87. Blood pressure 142/60. Respirations 20. 97% on room air. 6 foot 1-1/2 inches tall. 132 kg. Disheveled tall white male, and unfortunately still has severe malodor from that right necrotic tissue of leg. The pertinent finding is that leg. More than 50% of the right calf is necrosis. In the middle of it is a 12 x 18 cm necrotic mass that is expanded from the 6 x 6 cm from last week. It is full skin and full fat down to muscle. There are areas of blackness within the center of the necrotic area. The surrounding lips around the necrotic area are also black. There is an area of duskiness and ind uration climbing up the calf to the popliteal fossa. The left heel is starting to feel indurated underneath the thick white callus. The left calf has hyperkeratotic keratotic sloughing skin surrounding the calf. There is no ulcer or oozing there. He hyperkeratotic skin is roughened, raised, with numerous, numerous areas that are verrucous growths. Those are yellowish in color. This hyperkeratotic verrucous area encompasses more than 50% of the calf. Lungs are clear with diminished breath sounds Regular rate and rhythm A hugely obese abdomen with an easily reducible umbilical hernia Sodium 133. BUN 18. Creatinine 0.9. White cell count 12.3. Hemoglobin 10.5. Platelets 485. Assessment/Plan (1) Soft tissue necrosis right calf This is a gentleman who has had chronic wounds. More in the left leg than on the right leg. The chronic wounds go all the way back 8 years he tells me but the right leg wounds are a relatively recent phenomena over the last few weeks, maybe months, he's not sure. When he presented he had cellulitis of shins and calves that was pretty severe, right worse than left. He had chronic ulcers of left calf but they were not deep. More than anything they were malodorous and present over over the shins and calves with 100s of maggots that needed to be cleaned out of the wounds. the right leg was more edematous than the left, and was also red, hot, and tender to touch. Over the first few days, the nurses diligently showered him off, drying his wounds, and taking out the maggots. He was also started on empiric antibiotic therapy in the form of Zosyn and vancomycin when he first came in. He was changed to penicillin May 04 when the identification and sensitivities of blood cultures were strep pyogenes and the case was discussed with [facility] infectious disease on-call. He has responded to all of this with a reduction in white cell count. No fever. But on 05/06 the smell in his room became much worse. In removing the dressings and taking him to the shower, he has lost significant soft tissue due to necrosis in the right calf. I fear there is surrounding necrosis that still is not quite evident by induration and exam. On 05/06 I called [facility], [facility] to transfer him for higher level of care. No one has any beds. Dr. Hoover, general surgery, from [facility] did say to call him back. If we could possibly temporize until Wednesday 05/09. Pictures were discussed. We did send the pics to [facility] transfer center and he was able to see the depth and severity of the wound. On May 07, the patient also stated he wanted to leave AMA. He was calling his family in [place] to come get him. When I carefully requestioned him reguarding this issue, he states that his family is not ready to pick him up. They said that he really needs to get better and take care of this leg here before they are willing to take him home. As such, I continue what we were doing. We are wrapping the legs and shocks. Removing the checks throwing away and putting new ones on. Up to 3-4 times a day. He drained so much liquid from his legs that routine bandages are soaked through. No packing the wound since he drains so much. Continue antibiotics. Keep it clean and dry. I did call the [facility] transfer center 05/07 and no beds. they did ask me to call on Monday to see how their boarding status and OR status was. However, today is Monday. I fear that the Monday chatterjee will be upon them and they will not have any beds or ability to help me. So I am called the transfer center again 05/08 and I left the patient's name, my name, and to have the on- call surgeon give me a call. Although the patient is stable, I fear I may lose any possibility of transferring him if I wait till Monday. Looking at the boarding status for [facility], they are down to 10 borders. After speaking to them, the Transfer nurse wants our surgeon to speak to their surgeon 05/09 to possibly coordinate. But did not want to connect me with the surgeon documentation coordinator there. Today Dr Martinez was able to connect with Dr. Jaramillo, general surgery on-call. Both of them agree that the leg is 50% necrotic over the calf. Most likely this patient will need an AKA. Again, there is no surgeon at this hospital on-call right now. Dr. Martinez saw this patient out of courtesy to try and help me get this patient transferred. Dr. Jaramillo says they are full, they do not have OR time. They have patients with open belly is waiting to go to the OR. They recommended I call the central transfer center. Continue calling other facilities. They also recommended [facility] if the patient wants to go home to [place]. They are not aware of the number to call, and they asked me to google that. They did asked me to keep on calling back every day if I am not having any success and eventually, may be, they can take him to the OR I called [facility]. Their number is [phone]. They themselves also do not have any beds. They said that if I want to waitlist this patient I can however they would not be calling me back for over a week. I then called [facility] [phone]. All the pertinent information was given to them about a MedSurg nontelemetry bed. Most likely he will need an AKA. I gave her the list of hospitals have already called. They will call our daytime hospitalist number if they are successful. They have also been given the main number to the hospital to call the [facility] if they need to call at night. I have set expectations with the patient. I have told him that it is exceedingly difficult to get him transferred to get definitive surgical treatment of this leg. I wanted to warn him that the surgeons were discussing possible AKA. He is in tears. He says that at this point he is wound willing to consider anything because of the pain and his overriding fear that he is going to from this. (2) Bacteremia due to Streptococcus pyogenes Impression: He presented as a disheveled gentleman who lives in a garage provided by his friend. Has probably not showered in months. Cannot really say why. Has had a chronic leg wound on the left for 8 years but recently developed leg wounds on the right lower extremity. He has had maggots in his left leg for a very long time and those have increased in severity. Then started having maggots in the right leg in the last few weeks. He seems to have been developed subsequent cellulitis. On admit He had met criteria for sepsis. Sepsis criteria have now resolved since 05/04. White blood cell count was 26.1 with 14% bands. Lactic acid 3.0. Lactic acid has come down to 1.9. White cell count is still elevated at 22.9>>18.7>>14.8 and continues to drop slowly. Blood cultures are positive and have been identified as having strep pyogenes bacteremia. He was started on vancomycin and Zosyn. With 05/04 culture identifying him as strep pyogenes in the blood he was transitioned to penicillin. I spoke to infectious disease documentation coordinator at 05/04 that feels that single agent penicillin every 4 hours will be enough. She states that we should aim for about 14 days. Echocardiogram has overall left ventricular systolic function normal at 60 to 65%. Technically difficult study due to because of his limited access due to body habitus. He has impaired relaxation consistent with grade 1 diastolic dysfunction. The valves were visualized. No vegetations. But several lesions could not be excluded. Blood cultures have been repeated and results are negative from May 04. Plan: Penicillin for total of 14 days. Today #02/26. To complete a full 14 days, he will be completing antibiotics on May 18. He has a PICC line in place now. (3) Cellulitis of right and left lower extremity Conclusion/Plan: General surgery had been consulted on admission. They had seen the patient but felt that at that time that management boiled down to daily baths and the maggots would slowly pop up through the wounds and . She did not feel debridement was necessary. She would recommend that he be seen by wound clinic if possible. Wound clinic states they do not come to do consult on [facility] anymore. We are going to try and get him an appointment in the wound clinic and wheel him down the hallway if we can get an appointment. 05/06 the surgeon who saw him on admission is not in town and off call. There is no surgeon documentation coordinator. A surgeon who was doing elective cases in the OR 05/06 was called by me. He was not documentation coordinator. I asked him if he could please see this patient. I understood that he would not do surgery. That this was not his patient. that he was not on-call. But if he could be kind enough to guide me on where to go with this. He did leave a note in the chart. He does agree that we can wait until Monday to do definitive surgery with [facility] if possible. The patient is hemodynamically stable without overt signs of sepsis. The cellulitis of his left lower extremity has improved. What we are left with is the leg that has hyperkeratotic verrucous growths over almost all of the calf and most of the osuna. That in and of itself will need to be debrided or cleaned over time. The right lower extremity continues to be red, warm, or if not grayish or necrotic skin around the 12 x 18 cm necrosis down to muscle. (3) Chronic wound of extremity Conclusion/Plan: As above. He does have peripheral vascular disease and arterial Dopplers. The left leg is slightly red and oozing now but the right drains so much that it's wrapped in chucks with change tid to qid. (4) ROBYN (acute kidney injury) resolved Conclusion/Plan: Creatinine 1.5 with estimated GFR of 48. Now 0.8 and 18 respectively. Patient was given a 1 L bolus of normal saline in the emergency room and was on IV hydration with normal saline at 125 mL/h . Now that he is eating and drinking, maintenance IVF stopped. White cell count is 12.3. Stable. Sodium 133. Stable. BUN and creatinine stable. (5) Methamphetamine abuse Conclusion/Plan: Patient reports methamphetamine use as recently as 2 weeks ago. He states that he does not think he is ever gone to do it again. He is tired of living the life he has been living. His mother and his brothers have been in contact. They live in [place]. He is stating that his family will come get him now. He doesn't want to be here or [facility]. He will let me know during the day if he is really leaving AMA (6) Acute pain in limb He has severe soft tissue necrosis that is quite painful. He has been allowing us to bathe him in the shower, and it was all he could do to sit in the chair and let us clean him today. He would not allow us to touch the actual wound. Pictures were placed in the chart. I have started him on IV Dilaudid as needed.
[2022-05-09 19:47] LABS: B. PARAPERTUSSIS- RESP PCR PAN NOT DETECTED; B. PERTUSSIS- RESP PCR PANEL NOT DETECTED; C. PNEUMONIAE- RESP PCR PANEL NOT DETECTED; CORONAVIRUS 229E-RESP PCR NOT DETECTED; CORONAVIRUS HKU1-RESP PCR NOT DETECTED; CORONAVIRUS NL63-RESP PCR NOT DETECTED; CORONAVIRUS OC43-RESP PCR NOT DETECTED; HUMAN METAPNEUMOVIRUS NOT DETECTED; INFLUENZA A- RESP PCR PANEL NOT DETECTED; INFLUENZA B - RESP PCR PANEL NOT DETECTED; M. PNEUMONIAE- RESP PCR PANEL NOT DETECTED; PARAINFLUENZA VIRUS 1 NOT DETECTED; PARAINFLUENZA VIRUS 2 NOT DETECTED; PARAINFLUENZA VIRUS 3 NOT DETECTED; PARAINFLUENZA VIRUS 4 NOT DETECTED; RHINOVIRUS/ENTEROVIRUS NOT DETECTED; RSV- RESP PCR PANEL NOT DETECTED; SARS-CoV-2 -RESP PCR PANEL NOT DETECTED
--- NOTE | 2022-05-09 19:56 | PROVIDER PROGRESS NOTE ---
Subjective - General Admit Date: 05/03/22 Procedure Performed: none - Review of Systems All Other Systems: positive: Other (Unable to obtain) - Other Other Information/Narrative: Unfortunate and sad gentleman. He is cooperative in helping to unwrap is bandages and evaluate his leg but lets me know he wants to go to [place] where his family is. Says his pain is "terrible" but better than at admission. He is afebrile and antibiotic regimen has been fine tuned since admission. He tells me his left leg is his "good leg". The right one is a problem still. He feels the left looks pretty much as is has for years. Minimal pain on that side. Objective - Patient Data Vital Signs: Vital Signs x48h Temp Pulse Resp BP Pulse Ox 05/09/22 15:32 36.5 C 87 20 142/60 H 97 Intake & Output: Intake and Output Totals x24h 05/07/22 05/08/22 05/09/22 23:59 23:59 23:59 Intake Total 1873 2442 2077 Output Total 1075 2525 1100 Balance 798 -83 977 - Lab Results Lab Results: 05/09/22 05:15 05/09/22 05:15 Other Lab Results: Lab Results x24hrs 05/09/22 05/09/22 05/09/22 Range/Units 18:50 05:15 05:15 WBC 12.3 H (4.8-10.8) x10^3/uL RBC 3.83 L (4.70-6.10) 10^6/uL Hgb 10.5 L (14.0-18.0) g/dL Hct 33.1 L (42.0-52.0) % MCV 86.4 (80.0-94.0) fL MCH 27.4 (27.0-31.0) pg MCHC 31.7 L (32.0-36.0) g/dL RDW 15.9 H (12.0-15.0) % Plt Count 485 H (130-450) 10^3/uL MPV 9.3 (7.4-11.4) fL Neut # (Auto) 8.2 H (1.5-6.6) 10^3/uL Lymph # (Auto) 2.2 (1.5-3.5) 10^3/uL Lucas # (Auto) 1.2 H (0.0-1.0) 10^3/uL Eos # (Auto) 0.2 (0.0-0.7) 10^3/uL Baso # (Auto) 0.1 (0.0-0.1) 10^3/uL Absolute Nucleated RBC 0.00 x10^3/uL Nucleated RBC % 0.0 /100WBC Sodium 133 L (135-145) mmol/L Potassium 4.4 (3.5-5.0) mmol/L Chloride 100 L (101-111) mmol/L Carbon Dioxide 26 (21-32) mmol/L Anion Gap 7.0 (6-13) BUN 18 (6-20) mg/dL Creatinine 0.9 (0.6-1.2) mg/dL Estimated GFR (MDRD) 87 L (>89) Glucose 115 H (70-100) mg/dL Calcium 7.9 L (8.5-10.3) mg/dL Nasal Adenovirus (PCR) NOT DETECTED Nasal B. parapertussis DNA (PCR) NOT DETECTED Nasal Coronavir 229E PCR NOT DETECTED Nasal Coronavir HKU1 PCR NOT DETECTED Nasal Coronavir NL63 PCR NOT DETECTED Nasal Coronavir OC43 PCR NOT DETECTED Nasal Enterovir/Rhinovir PCR NOT DETECTED Nasal Influenza B PCR NOT DETECTED Nasal Influenza A PCR NOT DETECTED Nasal Parainfluen 1 PCR NOT DETECTED Nasal Parainfluen 2 PCR NOT DETECTED Nasal Parainfluen 3 PCR NOT DETECTED Nasal Parainfluen 4 PCR NOT DETECTED Nasal RSV (PCR) NOT DETECTED Nasal B.pertussis DNA PCR NOT DETECTED Nasal C.pneumoniae (PCR) NOT DETECTED Rashid Human Metapneumo PCR NOT DETECTED Nasal M.pneumoniae (PCR) NOT DETECTED Nasal SARS-CoV-2 (PCR) NOT DETECTED - Current Medications Current Medications: Current Medications Generic Name Dose Route Start Last Admin Trade Name Freq PRN Reason Stop Dose Admin Acetaminophen 650 mg 05/03/22 00:13 05/08/22 05:10 Acetaminophen 325 Mg Tablet PO 650 mg Q4HR PRN Administration Pain 1 to 4, or Fever Ascorbic Acid 500 mg 05/09/22 09:00 05/09/22 08:21 Ascorbic Acid 500 Mg Tablet PO 500 mg DAILY [facility] Administration Enoxaparin Sodium 40 mg 05/03/22 09:00 05/09/22 08:03 Enoxaparin 40 Mg/0.4 Ml Syringe SUBQ 40 mg DAILY [facility] Administration Hydromorphone HCl 2 mg 05/06/22 10:52 05/09/22 17:04 Hydromorphone 2 Mg/Ml Vial IVP 2 mg Q2H PRN Administration PAIN Penicillin G Potassium 5,000, 100 mls @ 100 mls/hr 05/04/22 17:00 05/09/22 18:07 000 unit/ Sodium Chloride IV Infused Q4HR [facility] Infusion Multivitamins/Minerals 1 tab 05/05/22 12:00 05/09/22 08:03 Multivitamin W/Minerals Tablet PO 1 tab DAILYWM [facility] Administration Ondansetron HCl 4 mg 05/03/22 00:13 05/04/22 01:19 Ondansetron 4 Mg/2 Ml Vial IVP 4 mg Q6HR PRN Administration Nausea / Vomiting Oxycodone HCl 5 mg 05/04/22 07:01 05/09/22 13:11 Oxycodone 5 Mg Tablet PO 5 mg Q4HR PRN Administration PAIN Polyethylene Glycol 17 gm 05/08/22 09:00 05/09/22 08:03 Polyethylene Glycol 3350 17 Gm Packet PO 17 gm DAILY [facility] Administration Saccharomyces Boulardii 250 mg 05/04/22 17:00 05/09/22 16:58 Saccharomyces Boulardii 250 Mg Capsule PO 250 mg BIDWM [facility]A Administration Sodium Chloride 10 ml 05/03/22 01:00 05/09/22 16:58 Sodium Chloride Flush 0.9% 10 Ml Syringe IVP 10 ml 0100,0900,1700 [facility] Administration Zinc Sulfate 220 mg 05/09/22 09:00 05/09/22 08:21 Zinc Sulfate 220 Mg Capsule PO 05/15/22 09:00 220 mg DAILY [facility] Administration - Physical Exam Comments/Other: Erythema of the right leg has improved greatly since admission and is now limited to the lower leg - just at the popliteal fossa. There is an area of emy necrosis involving the lateral 1/2 of the right leg over the gastrocnemius muscle. Constant drainaing and foul odour are appreciated. It is impossible to determine the extent of involved tissue but very likely involves the muscle body itself. The entire lower leg is erythematous and edematous. 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 I am very concerned he will require an AK amputation as there is certainly significant concern for healthy tissue available to close a BK stump. I will be back to work on Monday and can offer open debridement in the OR to at least decrease the burden of necrotic tissue. This would help to salvage any viable tissue and at least protect his options such as they are. I spoke with the surgeon configuration management advisor at per telephone as reviewe in Dr. Monaco's note. Hopefully we can get him to a higher level of care, but if not, we can attempt debridement in the OR here.
[2022-05-10] MEDS: oxyCODONE 5 MG TABLET PO PRN ×2 (01:23→08:17)
[2022-05-10] MEDS: PENICILLIN G POTASSIUM 5,000,000 UNIT in SODIUM CHLORIDE 0.9% MINIBAG 100 ML IV SCH ×6 (01:24→21:27)
[2022-05-10] MEDS: SODIUM CHLORIDE FLUSH 0.9% 10 ML SYRINGE IVP SCH ×3 (01:27→17:06)
[2022-05-10] MEDS: HYDROmorphone 2 MG/ML VIAL IVP PRN ×5 (02:42→22:59)
--- NOTE | 2022-05-10 08:06 | PROVIDER PROGRESS NOTE ---
Assessment/Plan - Problem List (1) Sepsis Assessment/Plan: Secondary to right lower extremity cellulitis with necrosis of right calf. Blood cultures drawn on 05/02/22 grew strep pyogenes. On penicillin G 5,000,000 units every 4 hours IV. White blood cell count improved from 23 at time of admission down to 11.3 today. Lactic acid normalized. General surgery was consulted and has been following the patient. Recommendation is for transfer for higher level of care. Patient will need an [id number]-enu-[id number] amputation of the right leg Today I reached out to [facility] but was told they are boarding about 130 patient's in their various ED's. Also reached out to [facility] and was informed that they are at high capacity. General Surgery (Dr. Jaramillo's )team at [facility] called and ag claryn declined patient today due to high capacity [facility] also followed up this morning. Still hoping to hear from [facility] and [facility]. (2) Cellulitis of right lower extremity Assessment/Plan: Blood cultures drawn on 05/02/22 grew strep pyogenes. On penicillin G 5,000,000 units every 4 hours IV. White blood cell count improved from 23 at time of admission down to 11.3 today. Lactic acid normalized. General surgery was consulted and has been following the patient. Recommendation is for transfer for higher level of care. Patient will need an [id number] amputation of the right leg (4) ROBYN (acute kidney injury) Assessment/Plan: Improved/resolved. Creatinine is 0.8 with estimated GFR of 100. (5) Methamphetamine abuse Assessment/Plan: Last use was 2 weeks prior to admission. (6) Bacteremia due to Streptococcus Assessment/Plan: Blood cultures of 05/02/2022 grew strep pyogenes. Patient is on penicillin G 5,000,000 units every 4 hours IV. - Current Meds Current Meds: Current Medications Generic Name Dose Route Start Last Admin Trade Name Freq PRN Reason Stop Dose Admin Acetaminophen 650 mg 05/03/22 00:13 05/08/22 05:10 Acetaminophen 325 Mg Tablet PO 650 mg Q4HR PRN Administration Pain 1 to 4, or Fever Ascorbic Acid 500 mg 05/09/22 09:00 05/09/22 08:21 Ascorbic Acid 500 Mg Tablet PO 500 mg DAILY SANDRA Administration Enoxaparin Sodium 40 mg 05/03/22 09:00 05/09/22 08:03 Enoxaparin 40 Mg/0.4 Ml Syringe SUBQ 40 mg DAILY SANDRA Administration Hydromorphone HCl 2 mg 05/06/22 10:52 05/10/22 06:04 Hydromorphone 2 Mg/Ml Vial IVP 2 mg Q2H PRN Administration PAIN Penicillin G Potassium 5,000, 100 mls @ 100 mls/hr 05/04/22 17:00 05/10/22 06:02 000 unit/ Sodium Chloride IV Infused Q4HR SANDRA Infusion Multivitamins/Minerals 1 tab 05/05/22 12:00 05/09/22 08:03 Multivitamin W/Minerals Tablet PO 1 tab DAILYWM SANDRA Administration Ondansetron HCl 4 mg 05/03/22 00:13 05/04/22 01:19 Ondansetron 4 Mg/2 Ml Vial IVP 4 mg Q6HR PRN Administration Nausea / Vomiting Oxycodone HCl 5 mg 05/04/22 07:01 05/10/22 01:23 Oxycodone 5 Mg Tablet PO 5 mg Q4HR PRN Administration PAIN Polyethylene Glycol 17 gm 05/08/22 09:00 05/09/22 08:03 Polyethylene Glycol 3350 17 Gm Packet PO 17 gm DAILY SANDRA Administration Saccharomyces Boulardii 250 mg 05/04/22 17:00 05/09/22 16:58 Saccharomyces Boulardii 250 Mg Capsule PO 250 mg BIDWM SANDRA Administration Sodium Chloride 10 ml 05/03/22 01:00 05/10/22 01:27 Sodium Chloride Flush 0.9% 10 Ml Syringe IVP 10 ml 0100,0900,1700 SANDRA Administration Zinc Sulfate 220 mg 05/09/22 09:00 05/09/22 08:21 Zinc Sulfate 220 Mg Capsule PO 05/15/22 09:00 220 mg DAILY SANDRA Administration - Lab Result Fish Bone Diagrams: 05/11/22 05:10 05/11/22 05:10 - Additional Planning My Orders: My Active Orders 05/10/22 07:58 BMP - BASIC METABOLIC PANEL [CHEM] Stat CBC - COMP BLD CT W/AUTO DIFF [HEME] Stat 05/10/22 09:00 Docusate Sodium 250Mg Capsule [Colace 250Mg Capsule] 250 - 500 mg PO DAILY Senna [Senokot] 8.6 - 17.2 mg PO DAILY 05/11/22 05:00 BMP - BASIC METABOLIC PANEL [CHEM] DAILYLAB CBC - COMP BLD CT W/AUTO DIFF [HEME] DAILYLAB 05/12/22 05:00 BMP - BASIC METABOLIC PANEL [CHEM] DAILYLAB CBC - COMP BLD CT W/AUTO DIFF [HEME] DAILYLAB 05/13/22 05:00 BMP - BASIC METABOLIC PANEL [CHEM] DAILYLAB CBC - COMP BLD CT W/AUTO DIFF [HEME] DAILYLAB 05/14/22 05:00 BMP - BASIC METABOLIC PANEL [CHEM] DAILYLAB CBC - COMP BLD CT W/AUTO DIFF [HEME] DAILYLAB 05/15/22 05:00 BMP - BASIC METABOLIC PANEL [CHEM] DAILYLAB CBC - COMP BLD CT W/AUTO DIFF [HEME] DAILYLAB Subjective - Subjective Patient Reports: Other (Patient was resting in bed at time of exam. He is very saddened at the prospect of undergoing an amputation. He denied any complaints at the time. Right leg is currently wrapped in bandage. Bandages soaked in serous fluid.) Objective Vital Signs: Vital Signs - 24 hr 05/09/22 05/09/22 05/09/22 09:00 11:47 15:32 Temperature 36.7 C 36.5 C 36.5 C Heart Rate [ 85 85 87 Brachial] Respiratory 16 18 20 Rate Blood Pressure 134/60 H 157/73 H 142/60 H [Left Brachial artery] O2 Saturation 94 98 97 05/09/22 05/10/22 05/10/22 20:06 01:00 05:00 Temperature 36.6 C 36.7 C 36.6 C Heart Rate [ 89 97 95 Brachial] Respiratory 16 18 20 Rate Blood Pressure 151/78 H 136/69 H 114/62 [Left Brachial artery] O2 Saturation 94 93 93 Oxygen O2 Source Room air I&O (Last 24 Hrs): Intake and Output Totals x24h 05/08/22 05/09/22 05/10/22 23:59 23:59 23:59 Intake Total 2442 2797 200 Output Total 0094 4070 775 Balance -83 3327 577 General: Alert, Oriented x3, Other (obese,) HEENT: PERRLA, EOMI Neck: Supple, No JVD Neuro: Alert, Non Focal, Oriented Times 3 Cardiovascular: Regular rate Respiratory: Chest non-tender, No respiratory distress, Breath sounds nml Abdomen: Soft, No tenderness, Other (obese abdomen) Extremities: Other (right leg currently wrapped in bandages which are soak with serous drainange from legs. Hyperemic appearing over bandages. Left leg with chronic venostasis changes) - Results Results: Laboratory Results WBC 12.3 x10^3/uL (4.8-10.8) H 05/09/22 05:15 RBC 3.83 10^6/uL (4.70-6.10) L 05/09/22 05:15 Hgb 10.5 g/dL (14.0-18.0) L 05/09/22 05:15 Hct 33.1 % (42.0-52.0) L 05/09/22 05:15 MCV 86.4 fL (80.0-94.0) 05/09/22 05:15 MCH 27.4 pg (27.0-31.0) 05/09/22 05:15 MCHC 31.7 g/dL (32.0-36.0) L 05/09/22 05:15 RDW 15.9 % (12.0-15.0) H 05/09/22 05:15 Plt Count 485 10^3/uL (130-450) H 05/09/22 05:15 MPV 9.3 fL (7.4-11.4) 05/09/22 05:15 Neut # (Auto) 8.2 10^3/uL (1.5-6.6) H 05/09/22 05:15 Lymph # (Auto) 2.2 10^3/uL (1.5-3.5) 05/09/22 05:15 [place] # (Auto) 1.2 10^3/uL (0.0-1.0) H 05/09/22 05:15 Eos # (Auto) 0.2 10^3/uL (0.0-0.7) 05/09/22 05:15 Baso # (Auto) 0.1 10^3/uL (0.0-0.1) 05/09/22 05:15 Absolute Nucleated RBC 0.00 x10^3/uL 05/09/22 05:15 Total Counted 100 05/07/22 05:00 Band Neuts % (Manual) 7 % (0-10) 05/07/22 05:00 Abnorm Lymph % (Manual) 0 % 05/07/22 05:00 Metamyelocytes % 1 % (-0) H 05/07/22 05:00 Myelocytes % 1 % (-0) H 05/07/22 05:00 Promyelocytes % 1 % (-0) H 05/02/22 20:32 Nucleated RBC % 0.0 /100WBC 05/09/22 05:15 Neutrophils # (Manual) 9.6 10^3/uL (1.5-6.6) H 05/07/22 05:00 Lymphocytes # (Manual) 1.6 10^3/uL (1.5-3.5) 05/07/22 05:00 Monocytes # (Manual) 1.0 10^3/uL (0.0-1.0) 05/07/22 05:00 Eosinophils # (Manual) 0.0 10^3/uL (0-0.7) 05/07/22 05:00 Basophils # (Manual) 0.0 10^3/uL (0-0.1) 05/07/22 05:00 Nucleated RBCs 1 % 05/05/22 05:01 Differential Comment MANUAL DIFFERENTIAL 05/07/22 05:00 Manual Slide Review Indicated 05/02/22 20:32 WBC Morphology NORMAL APPEARANCE (NORMAL) 05/05/22 05:01 Platelet Estimate INCREASED (>450,000) (NORMAL) 05/07/22 05:00 Platelet Morphology NORMAL APPEARANCE (NORMAL) 05/05/22 05:01 RBC Morph Micro Appear NORMAL APPEARANCE (NORMAL) 05/07/22 05:00 PT 16.3 secs (9.9-12.6) H 05/02/22 20:32 INR 1.5 (0.8-1.2) H 05/02/22 20:32 APTT 23.7 secs (24.9-33.3) L 05/02/22 20:32 Sodium 133 mmol/L (135-145) L 05/09/22 05:15 Potassium 4.4 mmol/L (3.5-5.0) 05/09/22 05:15 Chloride 100 mmol/L (101-111) L 05/09/22 05:15 Carbon Dioxide 26 mmol/L (21-32) 05/09/22 05:15 Anion Gap 7.0 (6-13) 05/09/22 05:15 BUN 18 mg/dL (6-20) 05/09/22 05:15 Creatinine 0.9 mg/dL (0.6-1.2) 05/09/22 05:15 Estimated GFR (MDRD) 87 (>89) L 05/09/22 05:15 Glucose 115 mg/dL (70-100) H 05/09/22 05:15 Lactic Acid 1.9 mmol/L (0.5-2.2) 05/03/22 09:04 Calcium 7.9 mg/dL (8.5-10.3) L 05/09/22 05:15 Total Bilirubin 3.6 mg/dL (0.2-1.0) H 05/02/22 20:32 AST 87 IU/L (10-42) H 05/02/22 20:32 ALT 53 IU/L (10-60) 05/02/22 20:32 Alkaline Phosphatase 161 IU/L (42-121) H 05/02/22 20:32 B-Natriuretic Peptide 55 pg/mL (5-100) 05/03/22 05:50 Total Protein 8.1 g/dL (6.7-8.2) 05/02/22 20:32 Albumin 2.4 g/dL (3.2-5.5) L 05/02/22 20:32 Globulin 5.7 g/dL (2.1-4.2) H 05/02/22 20:32 Albumin/Globulin Ratio 0.4 (1.0-2.2) L 05/02/22 20:32 Lipase 24 U/L (22-51) 05/02/22 20:32 Urine Color DARK YELLOW 05/02/22 23:58 Urine Clarity SL. CLOUDY (CLEAR) 05/02/22 23:58 Urine pH 5.5 PH (5.0-7.5) 05/02/22 23:58 Ur Specific [place] 1.025 (1.002-1.030) 05/02/22 23:58 Urine Protein 30 mg/dL (NEGATIVE) H 05/02/22 23:58 Urine Glucose (UA) NEGATIVE mg/dL (NEGATIVE) 05/02/22 23:58 Urine Ketones NEGATIVE mg/dL (NEGATIVE) 05/02/22 23:58 Urine Occult Blood TRACE-LYSE (NEGATIVE) 05/02/22 23:58 Urine Nitrite NEGATIVE (NEGATIVE) 05/02/22 23:58 Urine Bilirubin MODERATE (NEGATIVE) H 05/02/22 23:58 Urine Urobilinogen >=8.0 E.U./dL (NORMAL) H 05/02/22 23:58 Ur Leukocyte Esterase NEGATIVE (NEGATIVE) 05/02/22 23:58 Urine RBC 0-5 /HPF (0-5) 05/02/22 23:58 Urine WBC 0-3 /HPF (0-3) 05/02/22 23:58 Ur Squamous Epith Cells RARE Squamous (<= Few) 05/02/22 23:58 Urine Bacteria Rare /HPF (None Seen) 05/02/22 23:58 Urine Casts 0-2 Hyaline Casts /LPF 05/02/22 23:58 Ur Microscopic Review INDICATED 05/02/22 23:58 Urine Culture Comments NOT INDICATED 05/02/22 23:58 Nasal Adenovirus (PCR) NOT DETECTED 05/09/22 18:50 Nasal B. parapertussis DNA (PCR) NOT DETECTED 05/09/22 18:50 Nasal Coronavir 229E PCR NOT DETECTED 05/09/22 18:50 Nasal Coronavir HKU1 PCR NOT DETECTED 05/09/22 18:50 Nasal Coronavir NL63 PCR NOT DETECTED 05/09/22 18:50 Nasal Coronavir OC43 PCR NOT DETECTED 05/09/22 18:50 Nasal Enterovir/Rhinovir PCR NOT DETECTED 05/09/22 18:50 Nasal Influenza B PCR NOT DETECTED 05/09/22 18:50 Nasal Influenza A PCR NOT DETECTED 05/09/22 18:50 Nasal Parainfluen 1 PCR NOT DETECTED 05/09/22 18:50 Nasal Parainfluen 2 PCR NOT DETECTED 05/09/22 18:50 Nasal Parainfluen 3 PCR NOT DETECTED 05/09/22 18:50 Nasal Parainfluen 4 PCR NOT DETECTED 05/09/22 18:50 Nasal RSV (PCR) NOT DETECTED 05/09/22 18:50 Nasal B.pertussis DNA PCR NOT DETECTED 05/09/22 18:50 Nasal C.pneumoniae (PCR) NOT DETECTED 05/09/22 18:50 Rashid Human Metapneumo PCR NOT DETECTED 05/09/22 18:50 Nasal M.pneumoniae (PCR) NOT DETECTED 05/09/22 18:50 Nasal SARS-CoV-2 (PCR) NOT DETECTED 05/09/22 18:50 Last Dose Date 05-04-22 05/04/22 10:03 Last Dose Time 04:25 05/04/22 10:03 Vancomycin Trough 16.3 ug/mL (10.0-20.0) 05/04/22 10:03 SARS-CoV-2 (PCR) NOT DETECTED 05/02/22 21:50 Sepsis Event Note (H) - Evaluation Current Stage of Sepsis: Resolved Possible source of Sepsis: positive: Skin/soft tissue - Sepsis Criteria Sepsis Criteria: Recorded Heart Rate greater than 90 bpm, WBC count greater than 10% bands, WBC count greater than 12,000 or less than 4000, Metabolic: lactate > 2 mmol/L ABX Reporting Has patient been on IV antibiotics over the past 48 hours?: Yes
[2022-05-10 08:15] LABS: BASOPHILS # (AUTO) 0.1 10^3/uL (0.0-0.1); BASOPHILS % (AUTO) 0.5 %; EOSINOPHILS # (AUTO) 0.2 10^3/uL (0.0-0.7); HCT - HEMATOCRIT 33.9 % (42.0-52.0); HGB - HEMOGLOBIN 10.7 g/dL (14.0-18.0); LYMPHOCYTES # (AUTO) 1.6 10^3/uL (1.5-3.5); LYMPHOCYTES % (AUTO) 14.1 %; MEAN CORPUSCULAR HEMOGLOBIN 27.3 pg (27.0-31.0); MEAN CORPUSCULAR HGB CONC 31.6 g/dL (32.0-36.0); MEAN CORPUSCULAR VOLUME 86.5 fL (80.0-94.0); MONOCYTES # (AUTO) 1.1 10^3/uL (0.0-1.0); MONOCYTES % (AUTO) 9.5 %; NEUTROPHILS # (AUTO) 8.2 10^3/uL (1.5-6.6); NEUTROPHILS % (AUTO) 72.8 %; PLT - PLATELET COUNT 519 10^3/uL (130-450); RED BLOOD COUNT 3.92 10^6/uL (4.70-6.10); RED CELL DISTRIBUTION WIDTH 15.8 % (12.0-15.0); WHITE BLOOD COUNT 11.3 x10^3/uL (4.8-10.8)
[2022-05-10] MEDS: MULTIVITAMIN W/MINERALS TABLET PO SCH (08:15)
[2022-05-10] MEDS: ASCORBIC ACID 500 MG TABLET PO SCH (08:15)
[2022-05-10] MEDS: DOCUSATE SODIUM 250 MG CAPSULE PO SCH (08:16)
[2022-05-10] MEDS: polyethylene glycoL 3350 17 GM PACKET PO SCH (08:16)
[2022-05-10] MEDS: ZINC SULFATE 220 MG CAPSULE PO SCH (08:16)
[2022-05-10] MEDS: SACCHAROMYCES BOULARDII 250 MG CAPSULE PO SCH ×2 (08:16→17:06)
[2022-05-10] MEDS: ENOXAPARIN 40 MG/0.4 ML SYRINGE SUBQ SCH (08:16)
[2022-05-10] MEDS: SENNA 8.6 MG TABLET PO SCH (08:16)
[2022-05-10 08:22] LABS: CALCIUM 8.4 mg/dL (8.5-10.3); CREATININE 0.8 mg/dL (0.6-1.2); POTASSIUM 4.7 mmol/L (3.5-5.0)
--- NOTE | 2022-05-10 17:45 | DISCHARGE SUMMARY ---
Discharge Summary Admit Date: 05/03/22 Discharge Date: 05/12/22 Discharging Provider: Alejandro Escobedohotu Code Status: Attempt Resuscitation Condition at Discharge: Serious Discharge Disposition: 02 Transfer Acute Care Hosp Discharge Facility Name: [facility] - DIAGNOSES Admission Diagnoses: Sepsis Cellulitis of right lower extremity Chronic wound of extremity Acute kidney injury Methamphetamine abuse Discharge Diagnoses with Status of Each Condition: Sepsis: Improved: Continue penicillin G. Patient being transferred to [facility] for higher level of care. Bacteremia due to Streptococcus pyogenous: Continue penicillin G. Cellulitis of right lower extremity with necrosis down to muscle. Patient needs an [id number] amputation. Patient being transferred to [facility] for higher level of care. Chronic wound of extremity: Patient will need amputation of the right leg. He will also need significant debridement of the left leg. Acute kidney injury: Due to dehydration. Resolved. Right leg pain: Severe. Due to necrosis. Pain management as needed Methamphetamine abuse - HPI History of Present Illness: Patient is a 57-year-old obese male who is homeless and very disheveled. He resides on [address] in [place]. He was brought in by a friend because he noted that there was an increased amount of maggots coming out of his lower extremity wounds. This is notably on the right lower extremity. The patient has chronic wounds for years. It appears he had maggots in this wounds for a very long time. However lately there seems to be a significantly increased amount of maggots. The lower extremity is currently weeping ser osanguineous fluid and there is innumerable amount of maggots coming out of the wounds. The leg is significantly edematous and erythematous. There are left lower extremity has chronic venous stasis changes. He has significant facial sunburn and the skin on his forehead is peeling Patient is not a very good historian. He denies any medical problems for which he takes medications. He smokes cigarettes does not consume alcohol and uses methamphetamine. The last time was about 2 weeks ago. In the ED work-up included CBC which showed a white blood cell count of 26.1 with 14 bands. Lactic acid 3.0. Creatinine 1.5. He was presented for admission for further treatment. He denies chest pain, dyspnea, abdominal pain, nausea, vomiting, fever or chills. - HOSPITAL COURSE Hospital Course: Patient is a 57-year-old obese male who is homeless and has a history of methamphetamine use with last use being about 3 weeks ago. He was admitted on with sepsis. This was due to right lower extremity cellulitis with necrosis. There was a significant amount of maggots coming out of the right leg distal to the knee. This required several days of diligent showering, drying the wound and taking out the maggots as the presented on the surface to successfully remove all of them. The leg is 50% necrotic over the calf. On his left leg there is significant hyperkeratotic verrucous growths over almost all of the cough and most of the osuna. Patient was empirically started on vancomycin and Zosyn. Blood cultures subsequently grew strep pyogenes at which point he was switched to penicillin G. White blood cell count has improved from 26.1 at time of admission down to 11.3 by the time of discharge. 2D echocardiogram done on 05/05/2022 showed an ejection fraction of 60 to 65%. There was impaired relaxation consistent with grade 1 diastolic dysfunction. Right ventricular size and function was normal. There was no mitral stenosis. There was trace mitral regurgitation. There was no evidence of aortic stenosis. There was no evidence of aortic regur gitation. There were no obvious vegetations identified. Subtle lesions cannot be excluded. Bilateral lower extremity arterial duplex Done on 05/05/2022. This showed scattered atherosclerotic vascular calcification compatible with peripheral vascular disease. Increased velocities within the right anterior tibial artery proximally compatible with sequelae of stenosis. Proximal left anterior tibial artery not well visualized suspicious for occlusion. Decreased velocities and monophasic flow within the left posterior tibial artery with monophasic flow. The findings are suggestive of poststenotic flow. Focal increased velocity also demonstrated in the distal right superficial femoral artery also compatible with sequela of stenosis Patient also had acute kidney injury thought to be due to dehydration. With appropriate IV hydration this has resolved. At time of admission creatinine was 1.5 and currently it is 0.8. He was seen by general surgery who advised that the patient will likely require an [id number] amputation. Concern was that there would not be healthy tissue available to close below-knee stump. They advised transfer to another facility for higher level of care. Over several days attempt at transferring the patient has been unsuccessful due to high volumes at surrounding hospitals. The patient was presented to a physician at [facility] in [place] who were agreeable to take the patient onto their service. Consequently the patient is being transferred for continued care. - ALLERGIES Allergies/Adverse Reactions: Allergies Allergy/AdvReac Type Severity Reaction Status Date / Time No Known Drug Allergies Allergy Verified 05/02/22 19:56 - PHYSICAL EXAM AT DISCHARGE General Appearance: positive: Alert, Moderate distress, Severe distress (right leg pain) Eyes Bilateral: positive: PERRL, EOMI ENT: positive: No signs of dehydration Neck: positive: No JVD, Trachea midline Respiratory: positive: Chest non-tender, No respiratory distress, Breath sounds nml. negative: Wheezes, Rales, Rhonchi Cardiovascular: positive: Regular rate & rhythm, No murmur Abdomen: positive: Non-tender, No organomegaly, Nml bowel sounds, Other (obese abdomen). negative: Guarding, Rebound Back: positive: Nml inspection Skin: positive: Other (hyperkeratotic verucous skin changes in left lower extremity. necrotic tissue distal to enma on right lwer extremity) Extremities: positive: Other (Necrotic tissue on right leg distal to knee. Currently wrapped in bandage oozing serous malodorous liquid) Neurologic/Psychiatric: positive: Oriented x3, Mood/affect nml - LABS Result Diagrams: 05/12/22 05:10 05/12/22 05:10 - SEPSIS Current Stage of Sepsis: Resolved Possible source of Sepsis: Skin/soft tissue Sepsis Criteria: Recorded Heart Rate greater than 90 bpm, WBC count greater than 10% bands, WBC count greater than 12,000 or less than 4000, Metabolic: lactate > 2 mmol/L - TIME SPENT Time Spent in Discharge (Minutes): 35
--- NOTE | 2022-05-10 18:06 | Discharge Plan ---
Discharge Plan Problem Reviewed?: Yes Disposition: 02 Transfer Acute Care Hosp Condition: Serious Diet: Regular Activity Restrictions: Activity as Tolerated Health Concerns: Patient is a 57-year-old obese male who is homeless and has a history of methamphetamine use with last use being about 3 weeks ago. He was admitted on with sepsis. This was due to right lower extremity cellulitis with necrosis. There was a significant amount of maggots coming out of the right leg distal to the knee. This required several days of diligent showering, drying the wound and taking out the maggots as the presented on the surface to successfully remove all of them. The leg is 50% necrotic over the calf. On his left leg there is significant hyperkeratotic verrucous growths over almost all of the cough and most of the osuna. Patient was empirically started on vancomycin and Zosyn. Blood cultures subsequently grew strep pyogenes at which point he was switched to penicillin G. White blood cell count has improved from 23 at time of admission down to 11.3 by the time of discharge. Patient also had acute kidney injury Thought to be due to dehydration. With appropriate IV hydration this has resolved. At time of admission creatinine was 1.5 and currently it is 0.8. He was seen by general surgery who advised that the patient will likely require an [id number]-[id number] amputation. Concern was that there would not be healthy tissue available to close below-knee stump. They advised transfer to another facility for higher level of care. Over several days attempt at transferring the patient has been unsuccessful due to high volumes at surrounding hospitals. The patient was presented to a physician at [facility] in [place] who were agreeable to take the patient onto their service. Consequently the patient is being transferred for continued care. No Smoking: If you smoke, Please STOP! Call for help.
[2022-05-11] MEDS: PENICILLIN G POTASSIUM 5,000,000 UNIT in SODIUM CHLORIDE 0.9% MINIBAG 100 ML IV SCH ×6 (01:10→21:07)
[2022-05-11] MEDS: HYDROmorphone 2 MG/ML VIAL IVP PRN ×8 (01:11→23:54)
[2022-05-11] MEDS: SODIUM CHLORIDE FLUSH 0.9% 10 ML SYRINGE IVP SCH ×4 (01:14→23:55)
[2022-05-11 05:25] LABS: BASOPHILS % (AUTO) 0.4 %; EOSINOPHILS # (AUTO) 0.2 10^3/uL (0.0-0.7); HCT - HEMATOCRIT 31.9 % (42.0-52.0); HGB - HEMOGLOBIN 10.1 g/dL (14.0-18.0); LYMPHOCYTES # (AUTO) 1.9 10^3/uL (1.5-3.5); LYMPHOCYTES % (AUTO) 21.7 %; MEAN CORPUSCULAR HEMOGLOBIN 27.4 pg (27.0-31.0); MEAN CORPUSCULAR HGB CONC 31.7 g/dL (32.0-36.0); MEAN CORPUSCULAR VOLUME 86.7 fL (80.0-94.0); MEAN PLATELET VOLUME 9.1 fL (7.4-11.4); MONOCYTES % (AUTO) 10.9 %; NEUTROPHILS # (AUTO) 5.7 10^3/uL (1.5-6.6); NEUTROPHILS % (AUTO) 64.2 %; PLT - PLATELET COUNT 530 10^3/uL (130-450); RED BLOOD COUNT 3.68 10^6/uL (4.70-6.10); RED CELL DISTRIBUTION WIDTH 15.7 % (12.0-15.0); WHITE BLOOD COUNT 8.9 x10^3/uL (4.8-10.8)
[2022-05-11 05:34] LABS: CALCIUM 8.2 mg/dL (8.5-10.3); CREATININE 0.7 mg/dL (0.6-1.2)
[2022-05-11] MEDS: MULTIVITAMIN W/MINERALS TABLET PO SCH (08:49)
[2022-05-11] MEDS: ZINC SULFATE 220 MG CAPSULE PO SCH (08:49)
[2022-05-11] MEDS: ASCORBIC ACID 500 MG TABLET PO SCH (08:49)
[2022-05-11] MEDS: SACCHAROMYCES BOULARDII 250 MG CAPSULE PO SCH ×2 (08:49→17:39)
[2022-05-11] MEDS: SENNA 8.6 MG TABLET PO SCH (08:49)
[2022-05-11] MEDS: ENOXAPARIN 40 MG/0.4 ML SYRINGE SUBQ SCH (08:50)
[2022-05-11] MEDS: DOCUSATE SODIUM 250 MG CAPSULE PO SCH (08:50)
[2022-05-11] MEDS: polyethylene glycoL 3350 17 GM PACKET PO SCH (08:50)
--- NOTE | 2022-05-11 19:02 | PROVIDER PROGRESS NOTE ---
Assessment/Plan - Problem List (1) Sepsis Assessment/Plan: 05/12 Treatment continued with penicillin G. Attempts to transfer patient today have been unsuccessful due to very high census at hospital through [facility] and no bed availability Still working with [facility] to try to place patient. 05/11 Secondary to right lower extremity cellulitis with necrosis of right calf. Blood cultures drawn on 05/02/22 grew strep pyogenes. On penicillin G 5,000,000 units every 4 hours IV. White blood cell count improved from 23 at time of admission down to 11.3 today. Lactic acid normalized. General surgery was consulted and has been following the patient. Recommendation is for transfer for higher level of care. Patient will need an [id number] amputation of the right leg Today I reached out to [facility] but was told they are boarding about 130 patient's in their various ED's. Also reached out to [facility] and was informed that they are at high capacity. General Surgery (Dr. Jaramillo's )team at [facility] called and again declined patient today due to high capacity [facility] also followed up this morning. Still hoping to hear from [facility] and [facility]. (2) Cellulitis of right lower extremity Assessment/Plan: Blood cultures drawn on 05/02/22 grew strep pyogenes. On penicillin G 5,000,000 units every 4 hours IV. White blood cell count improved from 23 at time of admission down to 11.3 today. Lactic acid normalized. General surgery was consulted and has been following the patient. Recommendation is for transfer for higher level of care. Patient will need an [id number] amputation of the right leg (4) ROBYN (acute kidney injury) Assessment/Plan: Improved/resolved. Creatinine is 0.8 with estimated GFR of 100. (5) Methamphetamine abuse Assessment/Plan: Last use was 2 weeks prior to admission. (6) Bacteremia due to Streptococcus Assessment/Plan: Blood cultures of 05/02/2022 grew strep pyogenes. Patient is on penicillin G 5,000,000 units every 4 hours IV. - Current Meds Current Meds: Current Medications Generic Name Dose Route Start Last Admin Trade Name Freq PRN Reason Stop Dose Admin Acetaminophen 650 mg 05/03/22 00:13 05/08/22 05:10 Acetaminophen 325 Mg Tablet PO 650 mg Q4HR PRN Administration Pain 1 to 4, or Fever Ascorbic Acid 500 mg 05/09/22 09:00 05/11/22 08:49 Ascorbic Acid 500 Mg Tablet PO 500 mg DAILY SANDRA Administration Docusate Sodium 250 - 500 mg 05/10/22 09:00 05/11/22 08:50 Docusate Sodium 250 Mg Capsule PO 250 mg DAILY SANDRA Administration Enoxaparin Sodium 40 mg 05/03/22 09:00 05/11/22 08:50 Enoxaparin 40 Mg/0.4 Ml Syringe SUBQ 40 mg DAILY SANDRA Administration Hydromorphone HCl 2 mg 05/06/22 10:52 05/11/22 16:21 Hydromorphone 2 Mg/Ml Vial IVP 2 mg Q2H PRN Administration PAIN Penicillin G Potassium 5,000, 100 mls @ 100 mls/hr 05/04/22 17:00 05/11/22 18:22 000 unit/ Sodium Chloride IV Infused Q4HR SANDRA Infusion Multivitamins/Minerals 1 tab 05/05/22 12:00 05/11/22 08:49 Multivitamin W/Minerals Tablet PO 1 tab DAILYWM SANDRA Administration Ondansetron HCl 4 mg 05/03/22 00:13 05/04/22 01:19 Ondansetron 4 Mg/2 Ml Vial IVP 4 mg Q6HR PRN Administration Nausea / Vomiting Oxycodone HCl 5 mg 05/04/22 07:01 05/10/22 08:17 Oxycodone 5 Mg Tablet PO 5 mg Q4HR PRN Administration PAIN Polyethylene Glycol 17 gm 05/08/22 09:00 05/11/22 08:50 Polyethylene Glycol 3350 17 Gm Packet PO 17 gm DAILY SANDRA Administration Saccharomyces Boulardii 250 mg 05/04/22 17:00 05/11/22 17:39 Saccharomyces Boulardii 250 Mg Capsule PO 250 mg BIDWM SANDRA Administration Senna 8.6 - 17.2 mg 05/10/22 09:00 05/11/22 08:49 Senna 8.6 Mg Tablet PO 8.6 mg DAILY SANDRA Administration Sodium Chloride 10 ml 05/03/22 01:00 05/11/22 17:40 Sodium Chloride Flush 0.9% 10 Ml Syringe IVP 10 ml 0100,0900,1700 SANDRA Administration Zinc Sulfate 220 mg 05/09/22 09:00 05/11/22 08:49 Zinc Sulfate 220 Mg Capsule PO 05/15/22 09:00 220 mg DAILY SANDRA Administration - Lab Result Fish Bone Diagrams: 05/11/22 05:10 05/11/22 05:10 - Additional Planning My Orders: My Active Orders 05/12/22 05:00 BMP - BASIC METABOLIC PANEL [CHEM] DAILYLAB CBC - COMP BLD CT W/AUTO DIFF [HEME] DAILYLAB 05/13/22 05:00 BMP - BASIC METABOLIC PANEL [CHEM] DAILYLAB CBC - COMP BLD CT W/AUTO DIFF [HEME] DAILYLAB 05/14/22 05:00 BMP - BASIC METABOLIC PANEL [CHEM] DAILYLAB CBC - COMP BLD CT W/AUTO DIFF [HEME] DAILYLAB 05/15/22 05:00 BMP - BASIC METABOLIC PANEL [CHEM] DAILYLAB CBC - COMP BLD CT W/AUTO DIFF [HEME] DAILYLAB Subjective - Subjective Patient Reports: Other (Patient complained of severe pain in his right leg. He denied any other complaints.) Objective Vital Signs: Vital Signs - 24 hr 05/10/22 05/11/22 05/11/22 20:33 01:00 05:00 Temperature 36.8 C 36.5 C 36.8 C Heart Rate [ 97 87 87 Brachial] Respiratory 18 18 18 Rate Blood Pressure 130/62 148/69 H 131/52 H [Left Brachial artery] O2 Saturation 93 92 94 05/11/22 05/11/22 05/11/22 08:27 11:27 16:14 Temperature 36.6 C 36.6 C 36.6 C Heart Rate [ 86 84 85 Brachial] Respiratory 20 16 16 Rate Blood Pressure 118/56 L 114/56 L 133/63 H [Left Brachial artery] O2 Saturation 96 95 95 Oxygen O2 Source Room air I&O (Last 24 Hrs): Intake and Output Totals x24h 05/09/22 05/10/22 05/11/22 23:59 23:59 23:59 Intake Total 2797 2310 3084 Output Total 1550 1725 1900 Balance 2111 545 5144 Comments/Notes: General: Alert, Oriented x3, Other (obese,) HEENT: PERRLA, EOMI Neck: Supple, No JVD Neuro: Alert, Non Focal, Oriented Times 3 Cardiovascular: Regular rate Respiratory: Chest non-tender, No respiratory distress, Breath sounds nml Abdomen: Soft, No tenderness, Other (obese abdomen) Extremities: Other (right leg currently wrapped in bandages which are soak with serous drainange from legs. Dusky/grayish appearing over bandages. Left leg with chronic venostasis changes) - Results Results: Laboratory Results WBC 8.9 x10^3/uL (4.8-10.8) 05/11/22 05:10 RBC 3.68 10^6/uL (4.70-6.10) L 05/11/22 05:10 Hgb 10.1 g/dL (14.0-18.0) L 05/11/22 05:10 Hct 31.9 % (42.0-52.0) L 05/11/22 05:10 MCV 86.7 fL (80.0-94.0) 05/11/22 05:10 MCH 27.4 pg (27.0-31.0) 05/11/22 05:10 MCHC 31.7 g/dL (32.0-36.0) L 05/11/22 05:10 RDW 15.7 % (12.0-15.0) H 05/11/22 05:10 Plt Count 530 10^3/uL (130-450) H 05/11/22 05:10 MPV 9.1 fL (7.4-11.4) 05/11/22 05:10 Neut # (Auto) 5.7 10^3/uL (1.5-6.6) 05/11/22 05:10 Lymph # (Auto) 1.9 10^3/uL (1.5-3.5) 05/11/22 05:10 [place] # (Auto) 1.0 10^3/uL (0.0-1.0) 05/11/22 05:10 Eos # (Auto) 0.2 10^3/uL (0.0-0.7) 05/11/22 05:10 Baso # (Auto) 0.0 10^3/uL (0.0-0.1) 05/11/22 05:10 Absolute Nucleated RBC 0.00 x10^3/uL 05/11/22 05:10 Total Counted 100 05/07/22 05:00 Band Neuts % (Manual) 7 % (0-10) 05/07/22 05:00 Abnorm Lymph % (Manual) 0 % 05/07/22 05:00 Metamyelocytes % 1 % (-0) H 05/07/22 05:00 Myelocytes % 1 % (-0) H 05/07/22 05:00 Promyelocytes % 1 % (-0) H 05/02/22 20:32 Nucleated RBC % 0.0 /100WBC 05/11/22 05:10 Neutrophils # (Manual) 9.6 10^3/uL (1.5-6.6) H 05/07/22 05:00 Lymphocytes # (Manual) 1.6 10^3/uL (1.5-3.5) 05/07/22 05:00 Monocytes # (Manual) 1.0 10^3/uL (0.0-1.0) 05/07/22 05:00 Eosinophils # (Manual) 0.0 10^3/uL (0-0.7) 05/07/22 05:00 Basophils # (Manual) 0.0 10^3/uL (0-0.1) 05/07/22 05:00 Nucleated RBCs 1 % 05/05/22 05:01 Differential Comment MANUAL DIFFERENTIAL 05/07/22 05:00 Manual Slide Review Indicated 05/02/22 20:32 WBC Morphology NORMAL APPEARANCE (NORMAL) 05/05/22 05:01 Platelet Estimate INCREASED (>450,000) (NORMAL) 05/07/22 05:00 Platelet Morphology NORMAL APPEARANCE (NORMAL) 05/05/22 05:01 RBC Morph Micro Appear NORMAL APPEARANCE (NORMAL) 05/07/22 05:00 PT 16.3 secs (9.9-12.6) H 05/02/22 20:32 INR 1.5 (0.8-1.2) H 05/02/22 20:32 APTT 23.7 secs (24.9-33.3) L 05/02/22 20:32 Sodium 133 mmol/L (135-145) L 05/11/22 05:10 Potassium 4.0 mmol/L (3.5-5.0) 05/11/22 05:10 Chloride 99 mmol/L (101-111) L 05/11/22 05:10 Carbon Dioxide 27 mmol/L (21-32) 05/11/22 05:10 Anion Gap 7.0 (6-13) 05/11/22 05:10 BUN 19 mg/dL (6-20) 05/11/22 05:10 Creatinine 0.7 mg/dL (0.6-1.2) 05/11/22 05:10 Estimated GFR (MDRD) 117 (>89) 05/11/22 05:10 Glucose 158 mg/dL (70-100) H 05/11/22 05:10 Lactic Acid 1.9 mmol/L (0.5-2.2) 05/03/22 09:04 Calcium 8.2 mg/dL (8.5-10.3) L 05/11/22 05:10 Total Bilirubin 3.6 mg/dL (0.2-1.0) H 05/02/22 20:32 AST 87 IU/L (10-42) H 05/02/22 20:32 ALT 53 IU/L (10-60) 05/02/22 20:32 Alkaline Phosphatase 161 IU/L (42-121) H 05/02/22 20:32 B-Natriuretic Peptide 55 pg/mL (5-100) 05/03/22 05:50 Total Protein 8.1 g/dL (6.7-8.2) 05/02/22 20:32 Albumin 2.4 g/dL (3.2-5.5) L 05/02/22 20:32 Globulin 5.7 g/dL (2.1-4.2) H 05/02/22 20:32 Albumin/Globulin Ratio 0.4 (1.0-2.2) L 05/02/22 20:32 Lipase 24 U/L (22-51) 05/02/22 20:32 Urine Color DARK YELLOW 05/02/22 23:58 Urine Clarity SL. CLOUDY (CLEAR) 05/02/22 23:58 Urine pH 5.5 PH (5.0-7.5) 05/02/22 23:58 Ur Specific [place] 1.025 (1.002-1.030) 05/02/22 23:58 Urine Protein 30 mg/dL (NEGATIVE) H 05/02/22 23:58 Urine Glucose (UA) NEGATIVE mg/dL (NEGATIVE) 05/02/22 23:58 Urine Ketones NEGATIVE mg/dL (NEGATIVE) 05/02/22 23:58 Urine Occult Blood TRACE-LYSE (NEGATIVE) 05/02/22 23:58 Urine Nitrite NEGATIVE (NEGATIVE) 05/02/22 23:58 Urine Bilirubin MODERATE (NEGATIVE) H 05/02/22 23:58 Urine Urobilinogen >=8.0 E.U./dL (NORMAL) H 05/02/22 23:58 Ur Leukocyte Esterase NEGATIVE (NEGATIVE) 05/02/22 23:58 Urine RBC 0-5 /HPF (0-5) 05/02/22 23:58 Urine WBC 0-3 /HPF (0-3) 05/02/22 23:58 Ur Squamous Epith Cells RARE Squamous (<= Few) 05/02/22 23:58 Urine Bacteria Rare /HPF (None Seen) 05/02/22 23:58 Urine Casts 0-2 Hyaline Casts /LPF 05/02/22 23:58 Ur Microscopic Review INDICATED 05/02/22 23:58 Urine Culture Comments NOT INDICATED 05/02/22 23:58 Nasal Adenovirus (PCR) NOT DETECTED 05/09/22 18:50 Nasal B. parapertussis DNA (PCR) NOT DETECTED 05/09/22 18:50 Nasal Coronavir 229E PCR NOT DETECTED 05/09/22 18:50 Nasal Coronavir HKU1 PCR NOT DETECTED 05/09/22 18:50 Nasal Coronavir NL63 PCR NOT DETECTED 05/09/22 18:50 Nasal Coronavir OC43 PCR NOT DETECTED 05/09/22 18:50 Nasal Enterovir/Rhinovir PCR NOT DETECTED 05/09/22 18:50 Nasal Influenza B PCR NOT DETECTED 05/09/22 18:50 Nasal Influenza A PCR NOT DETECTED 05/09/22 18:50 Nasal Parainfluen 1 PCR NOT DETECTED 05/09/22 18:50 Nasal Parainfluen 2 PCR NOT DETECTED 05/09/22 18:50 Nasal Parainfluen 3 PCR NOT DETECTED 05/09/22 18:50 Nasal Parainfluen 4 PCR NOT DETECTED 05/09/22 18:50 Nasal RSV (PCR) NOT DETECTED 05/09/22 18:50 Nasal B.pertussis DNA PCR NOT DETECTED 05/09/22 18:50 Nasal C.pneumoniae (PCR) NOT DETECTED 05/09/22 18:50 Rashid Human Metapneumo PCR NOT DETECTED 05/09/22 18:50 Nasal M.pneumoniae (PCR) NOT DETECTED 05/09/22 18:50 Nasal SARS-CoV-2 (PCR) NOT DETECTED 05/09/22 18:50 Last Dose Date 05-04-22 05/04/22 10:03 Last Dose Time 04:25 05/04/22 10:03 Vancomycin Trough 16.3 ug/mL (10.0-20.0) 05/04/22 10:03 SARS-CoV-2 (PCR) NOT DETECTED 05/02/22 21:50 Sepsis Event Note (H) - Evaluation Current Stage of Sepsis: Resolved Possible source of Sepsis: positive: Skin/soft tissue - Sepsis Criteria Sepsis Criteria: Recorded Heart Rate greater than 90 bpm, WBC count greater than 10% bands, WBC count greater than 12,000 or less than 4000, Metabolic: lactate > 2 mmol/L ABX Reporting Has patient been on IV antibiotics over the past 48 hours?: Yes
[2022-05-12] MEDS: PENICILLIN G POTASSIUM 5,000,000 UNIT in SODIUM CHLORIDE 0.9% MINIBAG 100 ML IV SCH ×2 (00:12→05:15)
[2022-05-12] MEDS: HYDROmorphone 2 MG/ML VIAL IVP PRN ×2 (04:40→08:42)
[2022-05-12] MEDS: SODIUM CHLORIDE FLUSH 0.9% 10 ML SYRINGE IVP SCH (05:16)
[2022-05-12 05:20] LABS: BASOPHILS # (AUTO) 0.1 10^3/uL (0.0-0.1); BASOPHILS % (AUTO) 0.5 %; EOSINOPHILS # (AUTO) 0.1 10^3/uL (0.0-0.7); EOSINOPHILS % (AUTO) 1.3 %; HCT - HEMATOCRIT 30.9 % (42.0-52.0); HGB - HEMOGLOBIN 9.7 g/dL (14.0-18.0); MEAN CORPUSCULAR HEMOGLOBIN 26.9 pg (27.0-31.0); MEAN CORPUSCULAR HGB CONC 31.4 g/dL (32.0-36.0); MEAN CORPUSCULAR VOLUME 85.6 fL (80.0-94.0); MEAN PLATELET VOLUME 9.1 fL (7.4-11.4); MONOCYTES % (AUTO) 9.8 %; NEUTROPHILS # (AUTO) 7.2 10^3/uL (1.5-6.6); NEUTROPHILS % (AUTO) 68.8 %; PLT - PLATELET COUNT 515 10^3/uL (130-450); RED BLOOD COUNT 3.61 10^6/uL (4.70-6.10); RED CELL DISTRIBUTION WIDTH 15.6 % (12.0-15.0); WHITE BLOOD COUNT 10.4 x10^3/uL (4.8-10.8)
[2022-05-12 05:34] LABS: CREATININE 0.8 mg/dL (0.6-1.2); POTASSIUM 3.9 mmol/L (3.5-5.0)
[2022-05-12] MEDS: ASCORBIC ACID 500 MG TABLET PO SCH (08:21)
[2022-05-12] MEDS: ENOXAPARIN 40 MG/0.4 ML SYRINGE SUBQ SCH (08:21)
[2022-05-12] MEDS: oxyCODONE 5 MG TABLET PO PRN (08:21)
[2022-05-12] MEDS: SACCHAROMYCES BOULARDII 250 MG CAPSULE PO SCH (08:21)
[2022-05-12] MEDS: ACETAMINOPHEN 325 MG TABLET PO PRN (08:21)
[2022-05-12] MEDS: MULTIVITAMIN W/MINERALS TABLET PO SCH (08:21)
[2022-05-12] MEDS: ZINC SULFATE 220 MG CAPSULE PO SCH (08:21)
[2022-05-12 08:22] VITALS: BP 146/69
== END 2022-05-12 09:00 | disposition short-term general hospital (02) | DRG 872 ==
LOC: ED 19:44 → MS2 05-03 00:13
PROVIDERS: ADMIT Internal Medicine; ATTEND Internal Medicine
PROC: 02HV33Z Insertion of Infusion Device into Superior Vena Cava, Percutaneous Approach (ICD-10-PCS; principal; 2022-05-05)
DX: A40.0 Sepsis due to streptococcus, group A (principal); N17.9 Acute kidney failure, unspecified; L03.115 Cellulitis of right lower limb; L97.929 Non-pressure chronic ulcer of unspecified part of left lower leg with unspecified severity; L97.213 Non-pressure chronic ulcer of right calf with necrosis of muscle; F15.10 Other stimulant abuse, uncomplicated; E66.9 Obesity, unspecified; E86.0 Dehydration; I87.8 Other specified disorders of veins; L55.9 Sunburn, unspecified; F17.210 Nicotine dependence, cigarettes, uncomplicated; B87.1 Wound myiasis; Z20.822 Contact with and (suspected) exposure to COVID-19; Z59.02 Unsheltered homelessness
CPT/HCPCS: 36415; 71045; 76700; 80048; 80053; 80202; 81001; 83605; 83690; 83880; 85025; 85610; 85730; 87040; 87077; 87150; 87181; 87633; 87635; 93306; 93925; 93970; 96365; 96366; 96368; 99283; 99285; A9270; J1170; J1650; J3370; 81003; 87086